=== PATIENT | male | born 1985 | race Caucasian/White ===

== ENCOUNTER 2019-07-01 19:20 | Observation (INO) | payer OTHER, SELFPAY ==
[2019-07-01] VITALS (20 sets, daily range): BP systolic 91–110; BP diastolic 60–72; PULSE 78–98; RESP 13–25; TEMP 37.3–37.8; O2SAT 96–100
--- NOTE | ~2019-07-01 | CT_ITS ---
EXAMINATION: CT BRAIN W/O DATE: 07/01/2019 21:19 INDICATION: Seizure. Headache. TECHNIQUE: Computed tomography (CT) of the head was performed without intravenous contrast. The dose- length product was 605.33 mGy-cm. The mA was adjusted according to patient size. Iterative reconstruc tion technique was employed. COMPARISON: No prior studies for comparison. FINDINGS: Normal brain parenchymal volume for age. Normal moraes-white differentiation. No acute intrac ranial hemorrhage, infarction, mass or mass effect. No ventriculomegaly or midline shift. Midline sagittal images demonstrate a normal corpus callosum, c raniovertebral junction and sella turcica. Basilar cisterns are patent. Paranasal sinuses and mastoids are pneumatized. No depressed skull fractures. IMPRESSION: 1. No acute intracranial abnormality. Reviewed, dictated and finalized at location A. EL LOCOMOTIVE ENGINEER
--- NOTE | ~2019-07-01 | CT_ITS ---
EXAMINATION: CT soft tissue neck chest w DATE: 07/01/2019 21:19 INDICATION: Seizure. Neck pain. Bruising. TECHNIQUE: Computed tomography (CT) of the neck and chest was performed with 75 mL Omnipaque-350 intr avenous contrast. The dose-length product was 652.85 mGy-cm. Automated exposure control and iterative reconstruction technique were employed. COMPARISON: None FINDINGS: No significant vascular abnormality. No cervical lymphadenopathy. Thyroid gland is unremark able. No paraspinal soft tissue abnormality. No significant airway narrowing. No acute abnormality of the thyroid or hyoid cartilage. The cervical spine is unremarkable. Lung parenchyma is normal. No pn eumothorax. No endobronchial lesions. Heart size normal. No thoracic lymphadenopathy. The upper abdom en is unremarkable. IMPRESSION: 1. No acute abnormality of the neck or chest. Reviewed, dictated and finalized at location A. DIE MAKER
--- NOTE | ~2019-07-01 | XR_ITS ---
EXAMINATION: XR chest 2V 07/01/2019 21:27 INDICATION: Seizure. Fall. Chest pain. PROCEDURE: 2 view chest COMPARISON: No prior studies for comparison. FINDINGS: The lungs are clear. The cardiomediastinal silhouette is within normal limits. There are no pleural effusions. There is no pneumothorax suspected. IMPRESSION: 1: NO ACUTE CARDIOPULMONARY DISEASE. Reviewed, dictated and finalized at location A. AGE MECHANIC
[2019-07-01 19:51] LABS: Glucose Point of Care 126 (65-105)
--- NOTE | 2019-07-01 20:21 | PC.NURSE ---
Patient's mother came to this nurse and stated patient was getting anxious. This nurse informed her that the patient explained he anxiousness when performing his assessment. This nurse informed patient's mother and patient that the doctor will be in as soon as he can, that there are several critical patient's in the ER at this time. Patient's mother states patient has history of chronic anxiety. This nurse informed EDP.
--- NOTE | 2019-07-01 20:46 | ED.SEIZURE ---
HPI - Seizure General Chief Complaint: Seizure Stated Complaint: seizure/head injury Time Seen by Provider: 07/01/19 20:01 Source: patient, family (mother) and RN notes reviewed Mode of arrival: EMS Limitations: no limitations History of Present Illness HPI Narrative: Pt is a 33 y/o male who presents to the ED, via EMS, with c/o a seizure which occurred prior to arrival. The pt arrives to the ED with a C-collar in place. The pt reports he was at home when he had the seizure. His mother reports she did not see the pt fall, but she heard him. The pt's eyes were fixed and dilated with his arms flexed. She states the pt's mouth was clenched around the iron delmy of the table. She reports the pt had hit the table on his way to the floor. The pt's mother reports the pt experienced LOC, with increased disorientation and confusion secondary to the fall. She states the pt was in seizure-like activity for about 5 minutes. The pt has lacerations to his upper lip and neck which have stopped bleeding. Pt also reports generalized myalgias, but denies rhinorrhea, a sore throat, a cough, SOB, difficulty swallowing, a headache, urinary frequency, or dysuria. The pt reports he has had one previous seizure which occurred 1 year ago. He states the only correlation between the two episodes was that he had lack of sleep and eating, with an increased depressive state. Pt denies seeing a neurologist for his seizures, and denies being on any medication for his seizures. He reports smoking marijuana increases his anxiety levels and he reports he has smoked earlier this afternoon. He denies drinking alcohol recently. Pt reports a PMHx of depression, anxiety, and insomnia. complaint: seizure Onset (ago): unknown (sometime prior to arrival to the ED) Description of Episode: loss of consciousness Duration of episode: 5 -: minutes(s) Witnessed: Yes - by Bystander (mother) Trauma: No Seizure History: Yes (one year ago) Place: home Possible Precipitating Event: lack of sleep and other (lack of eating; increased depressive state) Associated symptoms: other (generalized myalgias; lacerations to his upper lip and neck) Related Data Home Medications Medication Instructions Recorded Confirmed alprazolam [Xanax] 0.5 mg PO TID PRN 07/02/19 07/02/19 Allergies Allergy/AdvReac Type Severity Reaction Status Date / Time No Known Allergies Allergy Verified 07/01/19 19:36 Review of Systems Review of Systems: All systems reviewed & are unremarkable except as noted in HPI and below Constitutional: Constitutional: Reports body ache(s) (generalized myalgias) ENT: Denies nasal discharge (rhinorrhea), Denies sore throat and Denies other (difficulty swallowing) Respiratory: Respiratory: Denies cough and Denies dyspnea Genitourinary: Genitourinary: Denies dysuria and Denies urinary frequency Integumentary/Breasts: Skin/Breast: Reports other (lacerations to his upper lip and neck) Neurologic: Denies headache(s) and Reports seizure-like activity (resolved currently in the ED bed) PMFSH Past Medical History Medical History Anxiety Depression Insomnia Social History Social History (Updated 07/02/19 @ 10:19 by Mckinley Sheridan PA-C) Social History: Patient lives at home with his mother and grandmother. He designates his mother, Dionne Cardoso, as his surrogate MDM. He wishes to be a Full Code. He has a primary care but does not remember the name as he has not seen them yet. Smoking packs per day: 0.25 Smoking cigarettes per day: 5.0 Years smoked: 15 Smoking pack-years: 3.75 Smoking status: Current some day smoker Tobacco type: cigarettes Alcohol intake: never Substance use: current Substance use type: marijuana Last use: 07/01/19 Gender identity (if verbalized by the patient): Male Spiritual care concerns: No Agree to blood products: No Exam Narrative: Exam Narrative: GENERAL:
[2019-07-01 21:10] LABS: Basophils Absolute Auto 0.1 K/mm3 (0.0-0.1); Basophils Percent Auto 0.4 % (0.2-1.2); Eosinophils Absolute Auto 0.1 K/mm3 (0-0.3); Eosinophils Percent Auto 1.1 % (0-4.4); Hematocrit 40.7 % (42.0-52.0); Hemoglobin 13.7 g/dL (14.0-18.0); Immature Granulocyte Absolute 0.04 K/mm3 (0.00-0.031); Immature Granulocyte Percent A 0.4 % (0-0.5); Lymphocytes Absolute Auto 0.84 K/mm3 (0.9-3.2); Lymphocytes Percent Auto 7.4 % (18.3-44.2); Mean Corpuscular HGB Conc 33.7 g/dl (32-36); Mean Corpuscular Hemoglobin 31.1 pg (26-34); Mean Corpuscular Volume 92.3 fl (80-100); Mean Platelet Volume 10.5 fl (7.4-10.4); Monocytes Absolute Auto 0.6 K/mm3 (0.1-0.6); Monocytes Percent Auto 5.5 % (2.6-8.5); Neutrophils Absolute Auto 9.7 K/mm3 (1.3-6.7); Neutrophils Percent Auto 85.2 % (45.5-73.1); Platelet Count Result 221 k/mm3 (150-375); Red Blood Count 4.41 M/mm3 (4.6-6.20); Red Cell Distribution Width 12.2 % (11.5-14.5); White Blood Count 11.3 K/mm3 (4.5-10.0)
--- NOTE | 2019-07-01 21:15 | PC.NURSE ---
Patient in radiology at this time.
[2019-07-01 21:16] LABS: Blood Urea Nitrogen 15 mg/dL (8-26); Estimated Glomerular Filt Rate > 60
[2019-07-01 21:24] LABS: Alanine Aminotransferase 15 U/L (4-50); Albumin Level 4.4 g/dL (3.5-5.1); Alkaline Phosphatase 66 U/L (38-126); Aspartate Amino Transferase 26 U/L (17-59); Bilirubin,Total 0.4 mg/dL (0.2-1.3); Blood Urea Nitrogen 15 mg/dL (9-20); Calcium 9.4 mg/dL (8.4-10.2); Carbon Dioxide 26 mmol/L (22-30); Chloride 103 mmol/L (98-107); Estimated Glomerular Filt Rate > 60; Glucose 114 mg/dL (75-110); Potassium 3.5 mmol/L (3.4-5.0); Sodium 137 mmol/L (137-145)
[2019-07-01 21:43] LABS: Ethanol < 10 mg/dL (<10)
[2019-07-01 22:42] LABS: Add Urine Microscopic? YES; Appearance Urine Clear (Clear); Bilirubin Urine Negative (Negative); Blood Urine Negative (Negative); Color Urine Yellow (Yellow); Glucose Urine UA Negative (Negative); Ketones Urine Negative (Negative); Leukocyte Esterase Ur Negative LEU/UL (Negative); Mucus Urine Rare /lpf; Nitrate Urine Negative (Negative); Protein Urine 1+ mg/dL (Negative); Specific Grav Ur 1.035 (1.001-1.035); Urobilinogen Urine Negative mg/dL (<2.0); WBC Urine 0-3 /hpf
[2019-07-01 22:58] LABS: Amphetamine Screen Urine Negative (Negative); Barbiturate Screen Urine Negative (Negative); Benzodiazepines Screen Urine Positive (Negative); Cannabinoid Screen Urine Positive (Negative); Cocaine Screen Urine Negative (Negative); Methadone Screen Urine Negative (Negative); Opiate Screen Urine Negative (Negative); Phencyclidine Screen Urine Negative (Negative)
[2019-07-01] MEDS: levETIRAcetam 1000MG/NACL100ML 1,000 MG/100 ML BAG 400 MG IVPB (23:21)
[2019-07-02] VITALS (10 sets, daily range): BP systolic 95–114; BP diastolic 46–76; PULSE 57–89; RESP 14–23; TEMP 36.6–37.2; O2SAT 98–100; BMI 17.9
[2019-07-02] MEDS: levETIRAcetam 500 MG TABLET PO (08:29)
[2019-07-02] MEDS: MORPHINE SULFATE 4 MG/ML INJ IV PUSH (08:31)
--- NOTE | 2019-07-02 09:30 | NEURO_ITS ---
TEST: ELECTROENCEPHALOGRAM DIAGNOSIS: SEIZURE PATIENT NUMBER: [id number] EEG NUMBER: [id number] RECORDING DATE: 07/02/19 CLINICAL HISTORY: Patient reports he was found on the floor with dilated eyes and unresponsive. States he was confused prior to the episode. CONDITION OF RECORDING: Awake and drowsy EEG DESCRIPTION: Basic resting occipital frequency consists of moderate amount of well organized low to medium voltage 8-10hz alpha mixed with low voltage 15- 18hz beta. During drowsiness low voltage beta activity is seen diffusely mixed with waxing and waning posterior alpha rhythms and multiple muscle and movement artifacts. Bilateral symmetrical sleep activity is seen during sleep. Hyperventilation and photic stimulation were not done. Nonparoxysmal. Nonfocal. Nonlateralizing . IMPRESSION: No significant abnormalities noted. MTDD
--- NOTE | 2019-07-02 09:57 | PM.IMHP ---
H&P: HPI History of Present Illness Chief complaint: seizure Narrative: Lenin Contreras II is a 33 year old male with history of insomnia, anxiety/depression, and occasional marijuana use who presented to the ER on evening of 07/01 after having reports of a seizure-like activity earlier in the day. Patient states that he does not remember much about the episode itself, as he lost consciousness and did not start to come to until EMS arrived and on the ride to the hospital. He states that his mom reportedly found him on the bedroom floor grasping the metal iron rods of his desk with both hands and arms flexed and him biting the delmy itself. She heard him fall to the ground and came running to the room to find him this way (the mother is not in the room at the time, but will attempt to get more information later in stay); per EMR reports mother stated that his eyes were fixed and dilated, with reports of seizure like activity for about 5 minutes. He states he has oral lesions/lacerations from biting and does not recall urinating or defecating on himself. Today he feels close to his baseline, although he notes his whole body is sore with muscle and joint aches. He recalls having a similar episode roughly 2 years ago. Both episode he attributes to not eating or sleeping very much in the day(s) leading up to the episodes. He remembers feeling confused prior to this episode. He had smoked marijuana earlier in the day, but notes that he has smoked this batch of marijuana for several weeks now without any issues. He denies any other recent illicit drug use, changes in medications; he occasionally takes Xanax for his anxiety but his last dose was roughly 2 weeks ago. He denies any family history of seizures. He notes he has an injury to his neck when he sustained the fall. He denies seeing a neurologist or taking medications from his prior seizure-like activity. Patient denies f/c/ns, headaches, dizziness, lightheadedness, changes in vision/hearing, cp/palpitations, sob/cough, recent cold/illness, dysphagia, abd pain, n/v/d/c, melena, brbpr, dysuria, hematuria, cloudy urine, calf pain/swelling, s/sx of stroke. Review of Systems Review of Systems: All systems reviewed & are unremarkable except as noted in HPI and below PMFSH Past Medical History Medical History Anxiety Depression Insomnia Social History Social History (Updated 07/02/19 @ 10:19 by Mckinley Sheridan PA-C) Social History: Patient lives at home with his mother and grandmother. He designates his mother, Dionne Cardoso, as his surrogate MDM. He wishes to be a Full Code. He has a primary care but does not remember the name as he has not seen them yet. Smoking packs per day: 0.25 Smoking cigarettes per day: 5.0 Years smoked: 15 Smoking pack-years: 3.75 Smoking status: Current some day smoker Tobacco type: cigarettes Alcohol intake: never Substance use: current Substance use type: marijuana Last use: 07/01/19 Gender identity (if verbalized by the patient): Male Spiritual care concerns: No Agree to blood products: No Meds Home Medications and Allergies Home Medications Medication Instructions Recorded Confirmed Type alprazolam [Xanax] 0.5 mg PO TID PRN 07/02/19 07/02/19 History Allergies Allergy/AdvReac Type Severity Reaction Status Date / Time No Known Allergies Allergy Verified 07/01/19 19:36 Vital Signs Vital Signs - 24 hr 07/01/19 19:24 07/01/19 19:29 07/01/19 20:09 Temperature 100.1 F H Pulse Rate 95 Respiratory Rate 16 Blood Pressure 109/62 Pulse Oximetry 96 96 98 07/01/19 20:15 07/01/19 20:16 07/01/19 20:30 Temperature Pulse Rate Respiratory Rate Blood Pressure 91/60 L 102/60 Pulse Oximetry 100 99 100 07/01/19 20:31 07/01/19 20:47 07/01/19 21:31 Temperature Pulse Rate 90 Respiratory Rate 20 Blood Pressure Pulse Oximet
[2019-07-02 12:14] LABS: Basophils Absolute Auto 0.1 K/mm3 (0.0-0.1); Basophils Percent Auto 0.6 % (0.2-1.2); Eosinophils Absolute Auto 0.4 K/mm3 (0-0.3); Eosinophils Percent Auto 4.4 % (0-4.4); Hematocrit 37.7 % (42.0-52.0); Hemoglobin 12.8 g/dL (14.0-18.0); Immature Granulocyte Absolute 0.01 K/mm3 (0.00-0.031); Immature Granulocyte Percent A 0.1 % (0-0.5); Lymphocytes Absolute Auto 2.35 K/mm3 (0.9-3.2); Lymphocytes Percent Auto 27.2 % (18.3-44.2); Mean Corpuscular Hemoglobin 31.5 pg (26-34); Mean Corpuscular Volume 92.9 fl (80-100); Monocytes Absolute Auto 0.9 K/mm3 (0.1-0.6); Monocytes Percent Auto 10.2 % (2.6-8.5); Neutrophils Percent Auto 57.5 % (45.5-73.1); Platelet Count Result 207 k/mm3 (150-375); Red Blood Count 4.06 M/mm3 (4.6-6.20); Red Cell Distribution Width 12.6 % (11.5-14.5); White Blood Count 8.6 K/mm3 (4.5-10.0)
[2019-07-02 12:22] LABS: Blood Urea Nitrogen 14 mg/dL (9-20); Calcium 9.1 mg/dL (8.4-10.2); Carbon Dioxide 23 mmol/L (22-30); Chloride 104 mmol/L (98-107); Estimated CRCL calculation 69 ml/min; Estimated Glomerular Filt Rate > 60; Glucose 114 mg/dL (75-110); Potassium 3.4 mmol/L (3.4-5.0); Sodium 138 mmol/L (137-145)
--- NOTE | 2019-07-02 13:03 | PCDIET ---
Nutrition MST screen Complete: Pt current nutrition is regular. Nutrition recommendation: agree Last recorded weight is 56.8 kg. Bowel Motility: Labs Reviewed:Hgb/Hct 13.7/40.7 Glucose 114 Meds Noted:Caroline Additional Notes: Seeing pt today due to poor appetite and low body wt. Pt states he grew up with very limited food resources and has a low appetite. He will eat only once per day but does have access to food at this point. Anxiety, insomnia started at age 16. He would like to gain weight. Unsure of vitamin D status and does experience lactose intolerance and IBS symptoms at items. Nutrient deficiencies expected. Glucose was elevated at 114. Pt describes light headiness and irritability when very hungry. Recommend A1c check. If GI issues and poor wt gain continue also consider celiac testing. Discussed retraining appetite, starting slowly to introduce three feeding times per day. Recommend perfect bar or carnation instant breakfast to get some kcals/protein with vitamins and minerals. Recommended Epsom salt in bath to get magnesium to aid in sleep and anxiety reduction. Recommend regular lab work with PCP and checking vitamin D due to mood disorders. Pt plans to d/c home today. We will follow every three days to check for adequate intake if pt remains inpatient.
[2019-07-02] MEDS: lamoTRIgine 25 MG TABLET 50 MG PO (13:42)
--- NOTE | 2019-07-02 16:10 | PM.DS ---
DS: Diagnosis Admitting Diagnosis Admitting Diagnosis: Unspecified convulsions Discharge Diagnosis (1) Witnessed seizure-like activity: Code(s): R56.9 - Unspecified convulsions Status: Acute Assessment and Plan: Possible true generalized seizure witnessed by mother. Possibly due to hypoglycemia (patient not eating as much) vs insomnia vs illicit drug use vs less likely infection or intracranial mass (Ct of Head unremarkable). DDx includes syncope vs psychogenic vs anxiety attack vs withdrawal seizure from alcohol vs other. Dr. Flores has been consulted and appreciate input. Okay for discharge today from Neurology standpoint Patient to have EEG today, pending results No seizure-like activity since yesterday. Started on Keppra from ED, however, per Dr. Flores recommendations, will start Lamictal 50 mg daily today. Follow up with Dr. Flores in 6 weeks. (2) Anxiety: Code(s): F41.9 - Anxiety disorder, unspecified Status: Acute Assessment and Plan: No acute issues at this time. Will resume Xanax at discharge. Instructed patient to follow up with [facility] for further management. He will need follow up with PCP and psychiatrist (3) Depression: Code(s): F32.9 - Major depressive disorder, single episode, unspecified Status: Acute Assessment and Plan: No acute issues. Please see above a/p (4) Insomnia: Code(s): G47.00 - Insomnia, unspecified Status: Acute Assessment and Plan: Patient will need follow up with PCP Will need good sleep hygiene Possible precipitating factor for possible seizure - lack of sleep? DS: Summary Hospital Course Reason for hospitalization: Seizure-like activity Hospital Course: Patient is a 33 year old male with history of insomnia, anxiety/depression, and occasional marijuana use who presented to the ER on evening of 07/01 after having reports of a seizure-like activity earlier in the day. Patient allegedly was heard dropping to the floor of his room by his mother that day. When the mother ran up to the room, he was found with his arms flexed and his mouth biting the delmy-iron leg of his desk, eyes/pupils fixed, and unresponsive. Patient believed he was like this for 5 minutes, but when questioned by mother, she stated at least ten minutes. He regained consciousness right when the EMS arrived and was in a confused state there after. He did not urinate/defecate on himself; he had some mouth trauma. He had a similar episode roughly 2 years prior and stated he was not sleeping well or eating as much at that time, either. He was started on Keppra while in the ED. Please see H&P for further details. Presenting VS: BP 109/62, HR 95, RR 16, temp 100.1, sat 96% RA Presenting Pertinent labs: WBC 11.3, H&H 13.7/40.7, MCV 92.3, POC glucose 126. Tox screen positive for benzodiazepines and cannabinoids. CBC, CMP, UA otherwise unremarkable Micro: none Imagin/[address] IMPRESSION: 1. No acute intracranial abnormality. 07/01 Neck/chest CT IMPRESSION: 1. No acute abnormality of the neck or chest. 07/01 CXR IMPRESSION: 1: NO ACUTE CARDIOPULMONARY DISEASE. ECG: none Patient was admitted to the hospitalist service for further evaluation; Dr. Flores (Neurology) was consulted for further input. Patient was nearly back to baseline on the day after arrival. His imaging and labs were unremarkable for etiology of possible seizure. Dr. Flores recommended switching patient to Lamictal 50 mg due to his anxiety and to follow up with a psychiatrist for further management of his anxiety; it was felt that this could have also been anxiety attack given patient's history. As a precaution, however, it was felt best to continue antiepileptic medication for prevention of possibly future seizures. Patient was hemodyn
--- NOTE | 2019-07-02 18:33 | CONS_ITS ---
DATE OF CONSULTATION: 07/01/2019 33 years old right-handed male has been admitted to [facility] through the emergency room with the complaints of 1. Anxiety with depression and insomnia. 2. Occasional marijuana use. Reportedly he presented to the ER in the evening of 07/01 after having a so-called seizure-like activity earlier in the day. Though he was unable to recall exactly the whole episode, he became unconscious and did not regain conscious ness until EMS arrived at the scene. His mother reportedly found him on the bedroom floor grasping the metalof his desk, both hands and arms flexed, biting the roll itself. She heard him fall to the ground and came running to the room to find him this way. As per the EMR report, mother stated that his eyes were fixed and dilated. He was in the seizure-like activity for about 5 minutes. . By the time he was seen by the hospital he was at baseline. He was complaining of some aches and pains in the muscles. Both episodes were attributed by him not to eating or sleeping very well. He remembers feeling confused prior to a particular episode. He had smoked marijuana earlier in the day, but noticed that when he smoked marijuana for 7 weeks now without any issues. He did deny taking any illicit drugs. He had no injury on his neck He does have ongoing history of anxiety with depression and insomnia for long time though he has not been under the care of any psychiatrist. He smokes 1/4 pack per day and has been smoking for 7 years and is current some day smoker, smokes marijuana also. He is taking alprazolam 0.5 mg t.i.d. p.r.n. PHYSICAL EXAMINATION: VITAL SIGNS: Evaluation up until now revealed him to have normal vital signs except temp of 100.1, pulse ox 100. GENERAL: Examination revealed him today to be awake, alert, cooperative, in no obvious acute distress. HEENT: Head normocephalic with no cranial bruit. Ears, nose, throat exam normal. NECK: Supple with no cervical bruit. No thyromegaly or lymphadenopathy. HEART: Regular. LUNGS: Clear. ABDOMEN: Soft. NEUROLOGIC: Normal mental status, normal speech. Pupils round, regular. Mo of vision full. Extraocular movements full. Face symmetrical. Tongue midline. Motor examination revealed normal strength and tone in upper and lower extremities with no drift with no increased tone. Reflexes symmetrical. Plantars downgoing. No evidence of cerebellar deficit. LABORATORY DATA: Evaluation up until now includes CBC, which is normal, so is the basic metabolic panel. Hepatic enzymes are also normal. In addition, the UA is normal. IMAGING: CT scan revealed no evidence of bleed. Chest x-ray negative and EEG read by myself is completely normal and it was informed to him as well as to his mother. At this stage, they were advised that most likely we are dealing with recurrent anxiety attacks, but at the same time because of this particular episode of possible seizure, we are going to start him on the medication. Though he was given Keppra 500 mg twice a day from the ER, I will stop that, put him on Lamictal 50 mg daily that might be beneficial in the long for psych illness as well. He can be discharged. He can return to the office with a followup for the ongoing seizure. In the meantime, he was instructed to [facility]_ for the treatment of the anxiety. TRACEY KIRK M.D. RISK INTERN RISK INTERN D Marcell MT: Yeimy HECTOR
== END 2019-07-02 16:45 | disposition home or self-care (01) ==
LOC: ANHED 23:35 → ANH3MED 23:40
PROVIDERS: Physician Assistant; Admitting Provider Internal Medicine; Emergency Provider Emergency Medicine; Visit Provider Internal Medicine
DX: R56.9 Unspecified convulsions (principal); F41.8 Other specified anxiety disorders; G47.00 Insomnia, unspecified; F12.90 Cannabis use, unspecified, uncomplicated
CPT/HCPCS: 36415; 70450; 70491; 71046; 71260; 80048; 80053; 80307; 81001; 82948; 85025; 87804; 95816; 96374; 99285; A9270; G0378; G0379; J1953; J2270; Q9967

== ENCOUNTER 2019-12-19 05:44 | Emergency (ER) | payer OTHER, SELFPAY ==
[2019-12-19 05:47] VITALS: BP 119/83; PULSE 115; RESP 22; TEMP 37.3; O2SAT 100
--- NOTE | 2019-12-19 06:12 | ED.GENADULT ---
HPI - General Adult General Chief complaint: Unspecified Stated complaint: coughing up blood Time Seen by Provider: 12/19/19 05:49 History of Present Illness HPI narrative: Patient is a 34-year-old male who presents ER with blood-streaked sputum. Patient reports he was diagnosed with pneumonia on 01/02/2020. He took a course of albuterol, azithromycin, and prednisone. He reports he has been feeling great. Occasionally will have episodes of frequent coughing. He had one such episode today where he coughed up mucus that was streaked with blood. He is on any blood thinners. She reports he was having forceful coughing right before this. Reports mild runny nose but no sore throat. No fevers or chills or sweats or body aches. He was not COVID swabbed. Related Data Home Medications Medication Instructions Recorded Confirmed alprazolam [Xanax] 0.5 mg PO TID PRN 07/02/19 07/02/19 Allergies Allergy/AdvReac Type Severity Reaction Status Date / Time No Known Allergies Allergy Verified 07/01/19 19:36 Review of Systems Constitutional: Constitutional: Denies chills, Denies fever(s) and Denies weakness Cardiovascular: Cardiovascular: Denies chest pain and Denies rapid heart rate Respiratory: Respiratory: Reports chest congestion, Reports cough, Denies dyspnea and Denies wheezing PMFSH Past Medical History Medical History (Updated 12/19/19 @ 06:17 by Dann Neves MD) Anxiety Depression Insomnia Surgical History Surgical History (Updated 12/19/19 @ 06:14 by Dann Neves MD) No history of previous surgery Social History Social History (Updated 07/02/19 @ 10:19 by Mckinley Sheridan PA-C) Social History: Patient lives at home with his mother and grandmother. He designates his mother, Dionne Cardoso, as his surrogate MDM. He wishes to be a Full Code. He has a primary care but does not remember the name as he has not seen them yet. Smoking packs per day: 0.25 Smoking cigarettes per day: 5.0 Years smoked: 15 Smoking pack-years: 3.75 Smoking status: Current some day smoker Tobacco type: cigarettes Alcohol intake: never Substance use: current Substance use type: marijuana Last use: 07/01/19 Gender identity (if verbalized by the patient): Male Spiritual care concerns: No Agree to blood products: No Exam Narrative: Exam Narrative: GENERAL: Well-appearing, well-nourished, and in no acute distress. HEAD: Normocephalic, atraumatic. CHEST: Clear to auscultation. No respiratory distress. HEART: Regular rate and rhythm. Normal peripheral pulses. NEURO: Alert and oriented x3. PSYCH: Normal mood and affect. Course Course Emergency Course: Patient will receive Tessalon Perles and Mucinex DM. Vital Signs Vital signs: Vital Signs Temperature 99.1 F 12/19/19 05:47 Pulse Rate 115 H 12/19/19 05:47 Respiratory Rate 22 H 12/19/19 05:47 Blood Pressure 119/83 12/19/19 05:47 Pulse Oximetry 100 12/19/19 05:47 Temperature 99.1 F 12/19/19 05:47 Pulse Rate 115 H 12/19/19 05:47 Respiratory Rate 22 H 12/19/19 05:47 Blood Pressure 119/83 12/19/19 05:47 Pulse Oximetry 100 12/19/19 05:47 Medical Decision Making Vital Signs Vital Signs: Vital Signs Temperature 99.1 F 12/19/19 05:47 Pulse Rate 115 H 12/19/19 05:47 Respiratory Rate 22 H 12/19/19 05:47 Blood Pressure 119/83 12/19/19 05:47 Pulse Oximetry 100 12/19/19 05:47 Temperature 99.1 F 12/19/19 05:47 Pulse Rate 115 H 12/19/19 05:47 Respiratory Rate 22 H 12/19/19 05:47 Blood Pressure 119/83 12/19/19 05:47 Pulse Oximetry 100 12/19/19 05:47 Discharge Plan Discharge Clinical Impression: Cough Patient Disposition: Home, Self-Care Condition: Stable Instructions: Chronic Cough (ED) Additional Instructions: You have persistent cough from your pneumonia. This will take time to go away. In the meantime use Tessalon Perles to help suppress her cough a
[2019-12-19 06:15] VITALS: O2SAT 100
[2019-12-19 06:23] VITALS: BP 124/88; PULSE 109; RESP 22; TEMP 36.3; O2SAT 98
== END 2019-12-19 06:29 | disposition home or self-care (01) ==
PROVIDERS: Emergency Provider Emergency Medicine
DX: R04.2 Hemoptysis (principal); F41.9 Anxiety disorder, unspecified; F32.9 Major depressive disorder, single episode, unspecified; F17.210 Nicotine dependence, cigarettes, uncomplicated
CPT/HCPCS: 99283

== ENCOUNTER 2020-03-01 05:13 | Emergency (ER) | payer OTHER, SELFPAY ==
[2020-03-01 05:16] VITALS: BP 138/80; PULSE 117; RESP 18; TEMP 36.3; O2SAT 100
--- NOTE | 2020-03-01 05:38 | ED.EAR ---
HPI - Ear Problem General Chief complaint: Ear Stated complaint: bug in right ear Time Seen by Provider: 03/01/20 05:24 Source: RN notes reviewed History of Present Illness HPI Narrative: Patient presents emergency department from home for bug in his ear. Patient states approximately 30 minutes prior to arrival he felt something fly into his right ear. Since that time is been able to feel it fluttering inside of his ear. Denies any other symptoms denies any fevers or chills or hearing loss Related Data Home Medications Medication Instructions Recorded Confirmed alprazolam [Xanax] 0.5 mg PO TID PRN 07/02/19 07/02/19 Allergies Allergy/AdvReac Type Severity Reaction Status Date / Time No Known Allergies Allergy Verified 03/01/20 05:14 Review of Systems Review of Systems: Narrative: Gen.: Denies fevers or chills HEENT: See HPI Neuro: Denies numbness, tingling, weakness Skin: Denies rash Endo: Denies DM PMFSH Past Medical History Medical History Anxiety Depression Insomnia Surgical History Surgical History (Updated 12/19/19 @ 06:14 by Dann Neves MD) No history of previous surgery Social History Social History Social History: Patient lives at home with his mother and grandmother. He designates his mother, Dionne Cardoso, as his surrogate MDM. He wishes to be a Full Code. He has a primary care but does not remember the name as he has not seen them yet. Smoking packs per day: 0.25 Smoking cigarettes per day: 5.0 Years smoked: 15 Smoking pack-years: 3.75 Smoking status: Current some day smoker Tobacco type: cigarettes Alcohol intake: never Substance use: current Substance use type: marijuana Last use: 07/01/19 Gender identity (if verbalized by the patient): Male Spiritual care concerns: No Agree to blood products: No Exam Narrative: Exam Narrative: APPEARANCE: No acute distress, nontoxic, resting in bed Eyes: EOMI HEENT: Normocephalic, atraumatic, left TM is normal appearance, the right external ear canal has a blood present in the ear canal there is mild abrasion of the canal TM is intact RESPIRATORY: No respiratory distress MUSCULOSKELETAl: Moves all extremities NEURO: Awake and alert. Following commands, speech normal, no focal deficits SKIN:: Warm, dry. Normal Color no rash or lesions Course Course Emergency Course: Discussed with patient results of workup and diagnosis. Discussed need for follow-up with primary care, proper use of medication, and reasons to return to the emergency department. Patient understands and agrees to current treatment plan Vital Signs Vital signs: Vital Signs Temperature 97.3 F L 03/01/20 05:16 Pulse Rate 117 H 03/01/20 05:16 Respiratory Rate 18 03/01/20 05:16 Blood Pressure 138/80 03/01/20 05:16 Pulse Oximetry 100 03/01/20 05:16 Temperature 97.3 F L 03/01/20 05:16 Pulse Rate 117 H 03/01/20 05:16 Respiratory Rate 18 03/01/20 05:16 Blood Pressure 138/80 03/01/20 05:16 Pulse Oximetry 100 03/01/20 05:16 Procedures FB Removal Ear Foreign Body #1: Location: ear canal (R) Foreign Body Suspected: insect TM intact pre-procedure: yes If Insect Suspected: ear canal instilled with Lidocaine Foreign Body Removed: yes Foreign Body Removal Technique: instrumentation (The ear was initially irrigated until the bug was removed from the ear canal and then removed with alligator forceps. A moth was removed) Tympanic Membrane Intact Post Procedure: Yes Patient Tolerated Procedure: well Complications: none Medical Decision Making Vital Signs Vital Signs: Vital Signs Temperature 97.3 F L 03/01/20 05:16 Pulse Rate 117 H 03/01/20 05:16 Respiratory Rate 18 03/01/20 05:16 Blood Pressure 138/80 03/01/20 05:16 Pulse Oximetry 100 0
[2020-03-01] MEDS: LIDOCAINE HCL 2% GEL UROJET 10 ML PKG (05:39)
== END 2020-03-01 05:50 | disposition home or self-care (01) ==
LOC: ANHED 05:45
PROVIDERS: Emergency Provider Emergency Medicine
DX: T16.1XXA Foreign body in right ear, initial encounter (principal); F41.9 Anxiety disorder, unspecified; F32.9 Major depressive disorder, single episode, unspecified; F17.210 Nicotine dependence, cigarettes, uncomplicated
CPT/HCPCS: 69200; 99282

== ENCOUNTER 2020-08-08 14:05 | Emergency (ER) | payer OTHER, SELFPAY ==
[2020-08-08 14:07] VITALS: BP 119/77; PULSE 93; RESP 18; TEMP 36.8; O2SAT 100
[2020-08-08 14:13] VITALS: PULSE 96; O2SAT 99
--- NOTE | 2020-08-08 14:23 | ECG_ITS ---
Measurements Intervals [place] Rate: 78 P: 74 TN: 155 QRS: 80 QRSD: 106 T: 61 QT: 386 QTc: 440 Interpretive Statements SINUS RHYTHM NORMAL ECG Electronically Signed On 08-08-2020 15:11:38 APPLICATIONS CONSULTANT by Sean Clark D.O.
--- NOTE | 2020-08-08 14:23 | ED.SEIZURE ---
HPI - Seizure General Chief Complaint: Seizure Stated Complaint: seizure Time Seen by Provider: 08/08/20 14:12 Source: patient and other (friend) Mode of arrival: ambulatory Limitations: no limitations History of Present Illness HPI Narrative: This is 34 year old male with history of anxiety who presents for evaluation of a seizure. PAtient states he has multiple seizures in the past. He does not take seizure medication. He is followed by Dr. Flores for his seizure. Today he was riding in a car with his friend when she witness patient have what appeared to be a seizure. She describes that patient became stiff and shaking. She reports he was pale and lips turned blue. This lasted for 3 minutes and she states it took him 10 minutes to return to normal. Patient is able to answer all questions now. He states he has insomnia and he has difficulty sleeping most nights. He did not sleep last night. He reports issues with anxiety and thoughts racing at night. He also reports he drinks alcohol every other night. HE has not drank alcohol in 2 days. He was started on Lamictal last year by his neurologist. He states once his dose was increased to 100 mg he started having side effects so he stopped taking the medication. He has not taken this medication in months. He denies regularly taking benzos. He last took Xanax 4 months ago. He denies headache or focal weakness. He has no complaints. Seizure History: Yes (one year ago) Related Data Home Medications Medication Instructions Recorded Confirmed alprazolam [Xanax] 0.5 mg PO TID PRN 07/02/19 07/02/19 Allergies Allergy/AdvReac Type Severity Reaction Status Date / Time No Known Allergies Allergy Verified 08/08/20 14:09 Review of Systems Review of Systems: All systems reviewed & are unremarkable except as noted in HPI and below Psychiatric: Psychiatric: Reports anxiety PMFSH Past Medical History Medical History (Updated 08/08/20 @ 17:04 by Narcisa Mallory MD) Anxiety Depression Insomnia Surgical History Surgical History (Updated 12/19/19 @ 06:14 by Dann Neves MD) No history of previous surgery Social History Social History (Updated 08/08/20 @ 14:24 by Narcisa Mallory MD) Social History: Patient lives at home with his mother and grandmother. He designates his mother, Dionne Cardoso, as his surrogate MDM. He wishes to be a Full Code. He has a primary care but does not remember the name as he has not seen them yet. Smoking packs per day: 0.25 Smoking cigarettes per day: 5.0 Years smoked: 15 Smoking pack-years: 3.75 Smoking status: Current some day smoker Tobacco type: cigarettes Alcohol intake: current Substance use: current Substance use type: marijuana Last use: 07/01/19 Gender identity (if verbalized by the patient): Male Spiritual care concerns: No Agree to blood products: No Exam Const: General: no acute distress and alert Nutritional Appearance: thin Orientation/consciousness: patient oriented x3 Eyes: EOM: EOMs intact bilaterally Chest: Chest palpation & inspection: normal inspection of the chest Resp: Effort & Inspection: normal respiratory effort and no retractions Auscultation: clear to auscultation bilaterally Cardio: Rate: regular rate Rhythm: regular rhythm GI: GI Palp: Yes Soft to palpation, No Tenderness to palpation present (GI) and No Guarding due to palpation present (GI) Auscultation: normal bowel sounds Skin: General skin exam: normal color Rashes: no rashes Neuro: General: patient oriented x3, moves all extremities, no meningeal signs, no focal motor deficits and CN's II-XI intact bilaterally Cranial nerves: Yes Nystagmus not present Speech: normal speech Extrem: General: normal to inspection Psych: Mental Status: mental status grossly normal Affect: normal affect Course Reevaluation(s) Reevaluation #1: I Discussed my discussion with neurology. He is agreeable
[2020-08-08 14:35] LABS: Basophils Absolute Auto 0.1 K/mm3 (0.0-0.1); Basophils Percent Auto 0.8 % (0.2-1.2); Eosinophils Absolute Auto 0.4 K/mm3 (0-0.3); Eosinophils Percent Auto 3.8 % (0-4.4); Hematocrit 45.5 % (42.0-52.0); Hemoglobin 15.5 g/dL (14.0-18.0); Immature Granulocyte Absolute 0.03 K/mm3 (0.00-0.031); Immature Granulocyte Percent A 0.3 % (0-0.5); Lymphocytes Absolute Auto 1.61 K/mm3 (0.9-3.2); Lymphocytes Percent Auto 15.2 % (18.3-44.2); Mean Corpuscular HGB Conc 34.1 g/dl (32-36); Mean Corpuscular Hemoglobin 33.8 pg (26-34); Mean Corpuscular Volume 99.1 fl (80-100); Mean Platelet Volume 10.2 fl (7.4-10.4); Monocytes Absolute Auto 1.2 K/mm3 (0.1-0.6); Monocytes Percent Auto 10.9 % (2.6-8.5); Neutrophils Absolute Auto 7.3 K/mm3 (1.3-6.7); Platelet Count Result 276 k/mm3 (150-375); Red Blood Count 4.59 M/mm3 (4.6-6.20); Red Cell Distribution Width 12.1 % (11.5-14.5); White Blood Count 10.6 K/mm3 (4.5-10.0)
[2020-08-08] MEDS: LACTATED RINGERS 1,000 ML 999 ML IV CONT (14:38)
[2020-08-08 14:51] LABS: Alanine Aminotransferase 21 U/L (4-50); Albumin Level 4.7 g/dL (3.5-5.1); Alkaline Phosphatase 82 U/L (38-126); Anion Gap 5 mmol/L (8-16); Aspartate Amino Transferase 43 U/L (17-59); Bilirubin,Total 0.5 mg/dL (0.2-1.3); Blood Urea Nitrogen 18 mg/dL (9-20); Calcium 9.4 mg/dL (8.4-10.2); Carbon Dioxide 33 mmol/L (22-30); Chloride 103 mmol/L (98-107); Estimated CRCL calculation 8 ml/min; Estimated Glomerular Filt Rate > 60; Glucose 66 mg/dL (75-110); Potassium 3.8 mmol/L (3.4-5.0); Sodium 141 mmol/L (137-145)
[2020-08-08 15:24] LABS: Add Urine Microscopic? YES; Amorphous Sediment Urine Moderate; Appearance Urine Cloudy (Clear); Bacteria Urine Trace /hpf; Bilirubin Urine Negative (Negative); Blood Urine Negative (Negative); Color Urine Yellow (Yellow); Glucose Urine UA Negative (Negative); Ketones Urine Negative (Negative); Leukocyte Esterase Ur Negative LEU/UL (Negative); Mucus Urine Rare /lpf; Nitrate Urine Negative (Negative); Protein Urine Negative (Negative); RBC Urine 0-2 /hpf (0-2); Specific Grav Ur 1.014 (1.001-1.035); Squamous Epithelial Cell Urine Rare /hpf (Few); Urobilinogen Urine Negative mg/dL (<2.0); WBC Urine 0-3 /hpf
[2020-08-08 15:32] LABS: Barbiturate Screen Urine Negative (Negative); Benzodiazepines Screen Urine Negative (Negative)
[2020-08-08 15:37] LABS: Cannabinoid Screen Urine Positive (Negative); Cocaine Screen Urine Negative (Negative); Methadone Screen Urine Negative (Negative); Opiate Screen Urine Negative (Negative); Phencyclidine Screen Urine Negative (Negative)
[2020-08-08 16:00] VITALS: BP 133/90; PULSE 96; RESP 20; O2SAT 99
[2020-08-08 16:38] LABS: Amphetamine Screen Urine Positive (Negative)
[2020-08-08 17:06] VITALS: BP 107/91; PULSE 81; RESP 20; O2SAT 100
[2020-08-08 17:20] VITALS: BP 107/91; PULSE 77; RESP 20; O2SAT 100
== END 2020-08-08 17:24 | disposition home or self-care (01) ==
PROVIDERS: Emergency Provider General Practice; PCP Emergency Medicine
DX: F41.9 Anxiety disorder, unspecified (principal); R56.9 Unspecified convulsions; F32.9 Major depressive disorder, single episode, unspecified; F17.210 Nicotine dependence, cigarettes, uncomplicated
CPT/HCPCS: 36415; 80053; 80307; 81001; 85025; 93005; 96360; 99283; J7120

== ENCOUNTER 2020-09-14 01:56 | Emergency (ER) | payer OTHER, SELFPAY ==
[2020-09-14] VITALS (18 sets, daily range): BP systolic 116–149; BP diastolic 78–109; PULSE 104–133; RESP 14–36; TEMP 36.6; O2SAT 99–100
--- NOTE | 2020-09-14 02:23 | ED.OVERDOSE ---
HPI - Overdose General Chief Complaint: Overdose Stated Complaint: OD Source: RN notes reviewed History of Present Illness HPI Narrative: Patient presents to emergency department from home via EMS for an overdose. EMS was called as the patient was unresponsive. The patient states he snorted a medication this evening is been unsure what it was he states that the last thing he remembers. The patient is given 8 of Narcan intranasally and became ANO x3. The patient is currently awake and alert with no deficits denies any complaints at this time. Denies any other drug use Related Data Home Medications Medication Instructions Recorded Confirmed alprazolam [Xanax] 0.5 mg PO TID PRN 07/02/19 07/02/19 Allergies Allergy/AdvReac Type Severity Reaction Status Date / Time No Known Allergies Allergy Verified 08/08/20 14:09 Review of Systems Review of Systems: Narrative: Gen.: Denies fevers or chills Eyes: Denies eye pain or visual change ENT: Denies congestion Respiratory: Denies shortness of breath or cough CV: Denies chest pain or palpitations GI: Denies abdominal pain nausea, emesis or diarrhea Musculoskeletal: Denies back pain or muscle pain Neuro: See HPI Skin: Denies rash Except as documented, all other systems reviewed and negative [facility] Past Medical History Medical History (Updated 09/14/20 @ 05:53 by Eulalio Marquez DO) Anxiety Depression Insomnia Surgical History Surgical History (Updated 12/19/19 @ 06:14 by Dann Neves MD) No history of previous surgery Social History Social History Social History: Patient lives at home with his mother and grandmother. He designates his mother, Dionne Cardoso, as his surrogate MDM. He wishes to be a Full Code. He has a primary care but does not remember the name as he has not seen them yet. Smoking packs per day: 0.25 Smoking cigarettes per day: 5.0 Years smoked: 15 Smoking pack-years: 3.75 Smoking status: Current some day smoker Tobacco type: cigarettes Alcohol intake: current Substance use: current Substance use type: marijuana Last use: 07/01/19 Gender identity (if verbalized by the patient): Male Spiritual care concerns: No Agree to blood products: No Exam Narrative: Exam Narrative: APPEARANCE: No acute distress, nontoxic, resting in bed EYES: E PERRL HEENT: Normocephalic, atraumatic, OMM RESPIRATORY: No respiratory distress Clear to auscultation bilaterally with no rhonchi wheezing or rales. CARDIOVASCULAR: Regular rate and rhythm without murmurs rubs or gallops. ABDOMINAL: Soft, nontender, nondistended, no rebound or guarding MUSCULOSKELETAl: Moves all extremities. No clubbing, cyanosis or edema. NEURO: Awake and alert x 3. Following commands, speech normal, no focal deficits SKIN:: Warm, dry. No rashes lesions or abrasions PSYCHIATRIC: Normal affect/mood, Course Course Emergency Course: Patient has remained awake and alert throughout his stay in ED eating and drinking in ED with no difficulties Patient states he is ready to go home Discussed with patient results of workup and diagnosis. Discussed need for follow-up with primary care, proper use of medication, and reasons to return to the emergency department. Patient understands and agrees to current treatment plan Vital Signs Vital signs: Vital Signs Temperature 98 F 09/14/20 01:54 Pulse Rate 122 H 09/14/20 01:54 Respiratory Rate 36 H 09/14/20 01:54 Blood Pressure 149/109 H 09/14/20 01:54 Pulse Oximetry 100 09/14/20 01:54 Temperature 98 F 09/14/20 01:54 Pulse Rate 118 H 09/14/20 05:45 Respiratory Rate 20 09/14/20 05:45 Blood Pressure 133/79 09/14/20 04:06 Pulse Oximetry 100 09/14/20 05:45 MDM - Overdose MDM Narrative Medical decision making narrative: Patient presents for opioid overdose state he snorted medication he got but is unsure what it is given need of
--- NOTE | 2020-09-14 02:50 | PC.NURSE ---
Addendum entered by Harriett Morales RN 09/14/20 02:55: Food given, will continue to monitor Original Note: RN instructed per ERP to not call poison control due to unknown substance or amount ingested. Food give, will continue to mx pt for adverse reactions .
--- NOTE | 2020-09-14 02:53 | PC.NURSE ---
Rn instructed to monitor pt on cardiac leads, no orders for labs or EKG from ERP.
[2020-09-14] MEDS: SODIUM CHLORIDE 0.9% IV 1,000 ML 999 ML IV CONT (05:04)
--- NOTE | 2020-09-14 05:45 | PC.NURSE ---
Pt trying to find ride. Unable at this time.
== END 2020-09-14 06:33 | disposition home or self-care (01) ==
PROVIDERS: Emergency Provider Emergency Medicine
DX: T40.2X1A Poisoning by other opioids, accidental (unintentional), initial encounter (principal); F41.9 Anxiety disorder, unspecified; F32.9 Major depressive disorder, single episode, unspecified; F17.210 Nicotine dependence, cigarettes, uncomplicated
CPT/HCPCS: 96360; 99283; J7030

== ENCOUNTER 2021-09-11 09:18 | Inpatient (IN) | payer OTHER, SELFPAY ==
[2021-09-11] VITALS (17 sets, daily range): BP systolic 114–151; BP diastolic 80–101; PULSE 96–126; RESP 18–24; TEMP 36.8–37.4; O2SAT 18–99; BMI 21.7
--- NOTE | ~2021-09-11 | CT_ITS ---
EXAMINATION: CT abdomen pelvis w con EXAM DATE: 09/11/2021 10:48 INDICATION: Upper ABD pain, ETOH use, N/V. TECHNIQUE: Spiral CT of the abdomen and pelvis was performed following intravenous injection of 100 m L Omnipaque 350. Axial, coronal and sagittal images of the abdomen and pelvis were reviewed. The do se-length product (DLP) for this examination was 276.93 mGy-cm. The exposure was tailored according to patient size (auto mA exposure control), and iterative reconstruction (ASIR) was used as additiona l dose reduction technique. There is no prior study for comparison. FINDINGS: There is severe hepatic steatosis. There is rather extensive peripancreatic fat stranding, acute pancreatitis. Several small low density regions within the pancreas likely parenchymal edema, a lthough early small regions of necrosis not excludable. No pseudocyst or splenic venous thrombosis. Spleen, adrenal glands are unremarkable. Gallbladder is unremarkable. No biliary obstruction. Xenia l and splenic veins are patent. Kidneys enhance symmetrically. There is no hydronephrosis. The pr ostate is unremarkable. The bladder is unremarkable. There is no retroperitoneal or pelvic lymphade nopathy. There are no findings to suggest appendicitis. There is ascending and transverse colonic edema which is probably reactive from the pancreatitis. The stomach and small bowel are unremarkable. There is e xpected amount of colonic stool. No free intraperitoneal gas. The heart is normal in size. There are no pericardial or pleural effusions. The lung bases are unremarkable. The bones are unremarkab le. IMPRESSION: 1. Findings consistent with severe acute pancreatitis. 2. Right hemicolonic edema probably reactive. 3. Hepatic steatosis. Reviewed, dictated and finalized at location A.
--- NOTE | 2021-09-11 09:29 | ED.ABDPAIN ---
HPI - Abdominal Pain General Chief Complaint: Abdominal Pain <SHARYN Wang Last Filed: 09/11/21 13:27> Stated Complaint: abd pain, vomiting, anxiety <SHARYN Wang Last Filed: 09/11/21 13:27> Time Seen by Provider: 09/11/21 09:26 <SHARYN Wang Last Filed: 09/11/21 13:27> Source: patient and family <SHARYN Wang Last Filed: 09/11/21 13:27> Mode of arrival: ambulatory <SHARYN Wang Last Filed: 09/11/21 13:27> Limitations: no limitations <SHARYN Wang Last Filed: 09/11/21 13:27> History of Present Illness HPI narrative: Patient is a 35-year-old male who presents the ED with report of epigastric ABD pain. Patient reports he was drinking alcohol yesterday and suddenly developed this pain around 7 PM last night. The pain has been constant since then. He also reports having nausea and vomiting. He has tried taking an antacid and pain medicine at home but was unable to keep these down. No hematemesis, rectal bleeding. Patient also reports having hot flashes, but denies any known fever, diarrhea, constipation, urinary symptoms. Patient is a daily alcohol drinker and drinks up to 1/5 of vodka a day. He does not think he has ever had withdrawal symptoms before, but is not sure. His mother at bedside reports the patient has had hypoglycemic seizures before, but no withdrawal seizures. She states she is not currently on any antiepileptics, though records do show a Hx of the patient being on Lamictal. Patient does not have a history of diabetes. <SHARYN Wang Last Filed: 09/11/21 13:27> Related Data Home Medications: Home Medications Medication Instructions Recorded Confirmed alprazolam [Xanax] 0.5 mg PO TID PRN 07/02/19 07/02/19 <SHARYN Wang Last Filed: 09/11/21 13:27> Allergies/Adverse Reactions: Allergies Allergy/AdvReac Type Severity Reaction Status Date / Time No Known Allergies Allergy Verified 09/11/21 09:26 <Azra Gallardo PA-C - Last Filed: 09/11/21 13:27> Review of Systems Review of Systems: CONSTITUTIONAL: Reports hot sweats. Denies fever. CARDIOVASCULAR: Denies chest pain. RESPIRATORY: Denies dyspnea. GASTROINTESTINAL: Reports epigastric abdominal pain, nausea, vomiting. Denies rectal bleeding, hematemesis, or diarrhea. GENITOURINARY: Denies dysuria or hematuria. SKIN: Denies rash or itching. MUSCULOSKELETAL: Denies back pain, joint pain, or myalgia. NEUROLOGIC: Denies headache, numbness, or weakness. <Azra Gallardo PA-C - Last Filed: 09/11/21 13:27> All systems reviewed & are unremarkable except as noted in HPI and below <Azra Gallardo PA-C - Last Filed: 09/11/21 13:27> [facility] Past Medical History Medical History: Medical History (Updated 09/11/21 @ 11:33 by Azra Gallardo PA-C) Anxiety Depression History of seizure Insomnia <Azra Gallardo PA-C - Last Filed: 09/11/21 13:27> Surgical History Surgical History: Surgical History No history of previous surgery <Azra Gallardo PA-C - Last Filed: 09/11/21 13:27> Family History Family History: Family History (Updated 09/11/21 @ 13:06 by Ashlee David RN) Father Acute myocardial infarction Hypertension <Azra Gallardo PA-C - Last Filed: 09/11/21 13:27> Social History Social History: Social History (Updated 09/11/21 @ 10:03 by Azra aGllardo PA-C) Social History: Patient lives at home with his mother and grandmother. He designates his mother, Dionne Cardoso, as his surrogate MDM. He wishes to be a Full Code. He has a primary care but does not remember the name as he has not seen them yet. Smoking packs per day: 0.25 Smoking cigarettes per day: 5.0 Years smoked: 15 Smoking pack-years: 3.75 Smoking status: Former smoker Tobacco type: cigarettes Second hand tobacco smoke exposure: Yes Alcohol intake: curre
[2021-09-11 09:38] LABS: Basophils Absolute Auto 0.1 K/mm3 (0.0-0.1); Basophils Percent Auto 0.6 % (0.2-1.2); Eosinophils Absolute Auto 0.4 K/mm3 (0-0.3); Eosinophils Percent Auto 3.3 % (0-4.4); Hematocrit 43.7 % (42.0-52.0); Hemoglobin 14.8 g/dL (14.0-18.0); Immature Granulocyte Absolute 0.05 K/mm3 (0.00-0.031); Immature Granulocyte Percent A 0.4 % (0-0.5); Lymphocytes Absolute Auto 0.75 K/mm3 (0.9-3.2); Lymphocytes Percent Auto 6.3 % (18.3-44.2); Mean Corpuscular HGB Conc 33.9 g/dl (32-36); Mean Corpuscular Hemoglobin 34.2 pg (26-34); Mean Corpuscular Volume 100.9 fl (80-100); Mean Platelet Volume 10.5 fl (7.4-10.4); Monocytes Absolute Auto 1.2 K/mm3 (0.1-0.6); Monocytes Percent Auto 10.3 % (2.6-8.5); Neutrophils Absolute Auto 9.4 K/mm3 (1.3-6.7); Neutrophils Percent Auto 79.1 % (45.5-73.1); Platelet Count Result 167 k/mm3 (150-375); Red Blood Count 4.33 M/mm3 (4.6-6.20); Red Cell Distribution Width 12.8 % (11.5-14.5); White Blood Count 11.9 K/mm3 (4.5-10.0)
[2021-09-11] MEDS: KETOROLAC 30 MG/ML VIAL (*BKC) IV PUSH (09:59)
[2021-09-11] MEDS: ONDANSETRON INJ 4 MG/2 ML VIAL IV PUSH ×3 (09:59→20:14)
[2021-09-11] MEDS: SODIUM CHLORIDE 0.9% IV 1,000 ML 999 ML IV CONT ×3 (09:59→18:19)
[2021-09-11 10:04] LABS: Add Urine Microscopic? YES; Appearance Urine Cloudy (Clear); Bilirubin Urine Negative (Negative); Blood Urine 2+ (Negative); Color Urine Amber (Yellow); Glucose Urine UA Negative (Negative); Ketones Urine 1+ mg/dL (Negative); Leukocyte Esterase Ur Negative LEU/UL (Negative); Mucus Urine Rare /lpf; Nitrate Urine Negative (Negative); Protein Urine 2+ mg/dL (Negative); RBC Urine 0-2 /hpf (0-2); Squamous Epithelial Cell Urine Rare /hpf (Few); WBC Urine 0-3 /hpf
[2021-09-11 10:32] LABS: Alanine Aminotransferase 111 U/L (4-50); Albumin Level 4.9 g/dL (3.5-5.1); Alkaline Phosphatase 121 U/L (38-126); Anion Gap 20 mmol/L (8-16); Aspartate Amino Transferase 254 U/L (17-59); Bilirubin,Total 1.3 mg/dL (0.2-1.3); Blood Urea Nitrogen 7 mg/dL (9-20); Calcium 9.3 mg/dL (8.4-10.2); Carbon Dioxide 16 mmol/L (22-30); Chloride 102 mmol/L (98-107); Estimated CRCL calculation 92 ml/min; Estimated Glomerular Filt Rate > 60; Glucose 118 mg/dL (65-110); Potassium 3.9 mmol/L (3.4-5.0); Sodium 138 mmol/L (137-145)
[2021-09-11 10:42] LABS: Lipase 9331 U/L (23-300)
[2021-09-11] MEDS: MORPHINE SULFATE (*CRX) 4 MG/ML INJ 2 MG IV PUSH ×6 (10:58→23:15)
[2021-09-11] MEDS: SODIUM CHLORIDE 0.9% IV 1,000 ML 125 ML IV CONT (12:45)
[2021-09-11] MEDS: LORazepam INJ (*CRX) 2 MG/ML VIAL IV PUSH (13:30)
[2021-09-11 14:04] LABS: Amphetamine Screen Urine Negative (Negative); Barbiturate Screen Urine Negative (Negative); Benzodiazepines Screen Urine Positive (Negative); Cannabinoid Screen Urine Negative (Negative); Cocaine Screen Urine Negative (Negative); Methadone Screen Urine Negative (Negative); Opiate Screen Urine Negative (Negative); Phencyclidine Screen Urine Negative (Negative)
[2021-09-11 14:10] LABS: Device ROOM AIR; Fractional Inspired Oxygen 21 %; HCO3 VBG 22.2 mEq/l (24.0-30.0); PCO2 VBG 37.9 mmHg (42.0-48.0); PO2 VBG 35.4 mmHg (35.0-45.0); pH VBG 7.386 (7.300-7.400)
[2021-09-11 14:17] LABS: Ethanol < 10 mg/dL (<10)
--- NOTE | 2021-09-11 14:32 | PM.IMHP ---
H&P: HPI History of Present Illness Date/Time: Patient requires inpatient monitoring with expected length of stay to exceed 2 midnights for management of care. 09/11/21 14:32 Chief Complaint: Abdominal pain Narrative: Mr. Contreras is a 35-year-old gentleman who presented to the emergency with complaints of acute abdominal pain that started last evening at 7:00 p.m.. Patient states he was having a drink with a friend and at 7:00 a.m. he began having intense abdominal pain in the middle of his abdomen. Patient states that pain was so severe that he asked his friend to go home he quit drinking his vodka. Patient states he then started drinking water thinking this may help with the abdominal pain, but the pain worsened. Patient states he then vomited x1 with no relief and did try drinking water again. Patient denied any further nausea or vomiting. Patient denies any hematemesis. Patient states he has continued to have abdominal pain. Patient states he does drink approximately 2 pt of vodka daily, but there will be times he does skip a few days in between pints. Patient states that his last meal eaten was yesterday at lunch. Patient states he has been having normal bowel movements and his last bowel movement was yesterday. Patient denies any diarrhea or constipation. Patient denies any hematochezia or melena. Patient states he does have high anxiety and will take his friends or relatives alprazolam when he is having a panic attack. Patient states he has never seen a provider for his anxiety. Patient states he does not feel like he has ever gone into alcohol withdrawals previously. Patient states he does have a history of anxiety as described above. Patient states he also has a history of seizure disorders and he was on medication, but quit taking the medication could see did not like the side effects. Patient states he cannot recall the name of the medication. Patient states he has not had a seizure since he quit taking the medication. Review of Systems Review of Systems: A 12 point review of systems was completed patient all pertinent positive and negative per HPI the remainder are unremarkable. [facility] Past Medical History Medical History (Updated 09/11/21 @ 11:33 by Azra Gallardo PA-C) Anxiety Depression History of seizure Insomnia Surgical History Surgical History No history of previous surgery Family History Family History (Updated 09/11/21 @ 13:06 by Ashlee David RN) Father Acute myocardial infarction Hypertension Social History Social History (Updated 09/11/21 @ 10:03 by Azra Gallardo PA-C) Social History: Patient lives at home with his mother and grandmother. He designates his mother, Dionne Cardoso, as his surrogate MDM. He wishes to be a Full Code. He has a primary care but does not remember the name as he has not seen them yet. Smoking packs per day: 0.25 Smoking cigarettes per day: 5.0 Years smoked: 15 Smoking pack-years: 3.75 Smoking status: Former smoker Tobacco type: cigarettes Second hand tobacco smoke exposure: Yes Alcohol intake: current Drinks per week: 30 Alcohol use details: drinks up to a fifth of vodka per day Substance use: former Substance use type: marijuana Last use: 2020 Gender identity (if verbalized by the patient): Male Spiritual care concerns: No Agree to blood products: No Meds Home Medications and Allergies Home Medications Medication Instructions Recorded Confirmed Type No Home Medications 09/11/21 09/11/21 History Allergies Allergy/AdvReac Type Severity Reaction Status Date / Time No Known Allergies Allergy Verified 09/11/21 09:26 Vital Signs Vital Signs - 24 hr 09/11/21 09:22 09/11/21 09:58 09/11/21 10:58 Temperature 36.9 C 37.4 C Pulse Rate 126 H 109 H 110 H Pulse Rate [Brachial Palpation] Respiratory Rate 20 19 24 H Blood Pressure 147/97
[2021-09-11] MEDS: chlorproMAZINE HCL INJ 50 MG/2 ML AMP 25 MG IM (16:49)
[2021-09-11 18:25] LABS: Glucose Point of Care 102 mg/dl (65-105)
[2021-09-11] MEDS: SODIUM CHLORIDE 0.9% IV 1,000 ML 150 ML IV CONT (20:01)
[2021-09-11] MEDS: chlordiazePOXIDE (*CRX) 25 MG CAPSULE PO (20:01)
[2021-09-11] MEDS: LORazepam INJ (*CRX) 2 MG/ML VIAL 1 MG IV PUSH (20:13)
[2021-09-12] VITALS (13 sets, daily range): BP systolic 133–143; BP diastolic 94–103; PULSE 110–158; RESP 20; TEMP 37.2–37.7; O2SAT 91–100
[2021-09-12 00:01] LABS: Glucose Point of Care 103 mg/dl (65-105)
[2021-09-12] MEDS: LORazepam INJ (*CRX) 2 MG/ML VIAL IV PUSH ×2 (00:07→14:23)
[2021-09-12] MEDS: SODIUM CHLORIDE 0.9% IV 1,000 ML 150 ML IV CONT ×3 (03:22→17:42)
[2021-09-12] MEDS: MORPHINE SULFATE (*CRX) 4 MG/ML INJ 2 MG IV PUSH ×5 (03:22→17:35)
[2021-09-12] MEDS: chlordiazePOXIDE (*CRX) 25 MG CAPSULE 50 MG PO ×3 (03:47→17:35)
[2021-09-12 05:28] LABS: Basophils Absolute Auto 0.1 K/mm3 (0.0-0.1); Basophils Percent Auto 0.7 % (0.2-1.2); Eosinophils Percent Auto 0.1 % (0-4.4); Hematocrit 39.3 % (42.0-52.0); Hemoglobin 13.4 g/dL (14.0-18.0); Immature Granulocyte Absolute 0.02 K/mm3 (0.00-0.031); Immature Granulocyte Percent A 0.3 % (0-0.5); Immature Platelet Fraction Pct 12.1 % (0.9-11.2); Mean Corpuscular HGB Conc 34.1 g/dl (32-36); Mean Corpuscular Hemoglobin 34.7 pg (26-34); Mean Corpuscular Volume 101.8 fl (80-100); Mean Platelet Volume 11.4 fl (7.4-10.4); Monocytes Absolute Auto 0.7 K/mm3 (0.1-0.6); Monocytes Percent Auto 10.3 % (2.6-8.5); Neutrophils Absolute Auto 5.5 K/mm3 (1.3-6.7); Neutrophils Percent Auto 82.6 % (45.5-73.1); Platelet Count Result 90 k/mm3 (150-375); Red Blood Count 3.86 M/mm3 (4.6-6.20); White Blood Count 6.7 K/mm3 (4.5-10.0)
[2021-09-12 05:48] LABS: Alanine Aminotransferase 87 U/L (4-50); Albumin Level 3.5 g/dL (3.5-5.1); Alkaline Phosphatase 73 U/L (38-126); Anion Gap 7 mmol/L (8-16); Aspartate Amino Transferase 205 U/L (17-59); Bilirubin,Total 1.4 mg/dL (0.2-1.3); Blood Urea Nitrogen 8 mg/dL (9-20); Calcium 7.8 mg/dL (8.4-10.2); Carbon Dioxide 23 mmol/L (22-30); Chloride 106 mmol/L (98-107); Estimated CRCL calculation 100 ml/min; Estimated Glomerular Filt Rate > 60; Glucose 95 mg/dL (65-110); Magnesium 1.5 mg/dL (1.6-2.3); Potassium 3.6 mmol/L (3.4-5.0); Sodium 136 mmol/L (137-145)
[2021-09-12] MEDS: ONDANSETRON INJ 4 MG/2 ML VIAL IV PUSH (05:51)
[2021-09-12 06:04] LABS: Lipase 7019 U/L (23-300)
[2021-09-12 06:15] LABS: Glucose Point of Care 95 mg/dl (65-105)
[2021-09-12] MEDS: THIAMINE HCL 200 MG/2 ML VIAL 100 MG IV PUSH (08:07)
[2021-09-12] MEDS: METOPROLOL TARTRATE INJ 5 MG/5 ML VIAL IV PUSH (08:48)
--- NOTE | 2021-09-12 09:27 | PM.IMPN ---
Progress Note: A&P Assessment and Plan (1) Acute pancreatitis: Qualifiers: Acute pancreatitis complication: uninfected necrosis Pancreatitis type: unspecified pancreatitis type Qualified Code(s): K85.91 - Acute pancreatitis with uninfected necrosis, unspecified Code(s): K85.90 - Acute pancreatitis without necrosis or infection, unspecified Status: Acute Assessment and Plan: Patient is wanting to eat is talking about leaving the hospital. I strongly recommended he stay at keep NPO for now. Continue IV fluids. Trend lipase. (2) Alcohol abuse: Code(s): F10.10 - Alcohol abuse, uncomplicated Status: Acute Assessment and Plan: Patient's alcohol level is less than 10 at this time. Patient will be placed on CIWA protocol and have p.r.n. Ativan available. Patient will also be placed on b.i.d. Librium as he as having tremors and he is tachycardic at this time. Did discuss in depth with patient that he would need to quit drinking in order to not have repeated bouts of pancreatitis. Case management to help with programs for alcohol abuse. (3) History of seizure: Code(s): Z87.898 - Personal history of other specified conditions Status: Acute Assessment and Plan: Patient states he has a history of seizure disorder and quit taking his medications well over 6 years ago because he did not like the side effects. Patient states he has not had a seizure since that time. Monitor and continue CIWA protocol (4) Anxiety: Code(s): F41.9 - Anxiety disorder, unspecified Status: Acute Assessment and Plan: Patient states he does have a history of anxiety, but he has never seen a provider for this diagnosis. Currently on CIWA protocol. Needs to follow up with the primary care physician or psychiatrist as outpatient. Subjective Date/time seen: 09/12/21 09:27 Patient reports feeling better. Pain is slightly better as well. He is wanting to eat. Review of Systems Review of Systems: All systems reviewed & are unremarkable except as noted in HPI and below Exam Narrative: Constitutional: Patient is well-nourished in no acute distress. Patient is alert and oriented x3 HEENT: Moist mucous membranes. No scleral icterus. No lymphadenopathy. Neck: No carotid bruits noted no JVD noted Lungs: Lung sounds are clear to auscultation bilaterally. No accessory muscle use. No rhonchi, rales, or wheezes noted. Cardiovascular: Apical pulse is regular rhythm and tachycardic. S1-S2 noted, no S3 or S4 noted. No gallops, murmurs, or rubs noted. Abdomen: Soft and round. Patient complains of tenderness to entire abdomen with light palpation. Extremities: No edema. Nontender. Skin: No rashes or lesions. Warm and dry. Skin is intact. Neurological: No focal neurological deficits. Cranial nerves II-XII grossly intact. Psychiatric: Patient is Cooperative, and appears moderately anxious. Patient does have tremors and he states that is from his anxiety at this time. Objective Data Vital Signs Vital Signs: Vital Signs - 24 hr 09/11/21 09:58 09/11/21 10:58 09/11/21 11:41 Temperature 99.4 F Pulse Rate 109 H 110 H 102 H Pulse Rate [Brachial Palpation] Respiratory Rate 19 24 H 19 Blood Pressure 141/98 H 151/101 H 134/98 H Pulse Oximetry 18 L 99 97 09/11/21 12:28 09/11/21 12:51 09/11/21 13:12 Temperature 98.4 F Pulse Rate 101 H 109 H 113 H Pulse Rate [Brachial Palpation] Respiratory Rate 18 24 H Blood Pressure 135/96 H Pulse Oximetry 97 98 09/11/21 14:10 09/11/21 14:23 09/11/21 15:12 Temperature 98.2 F Pulse Rate 114 H Pulse Rate [Brachial Palpation] 110 H 102 H Respiratory Rate 24 H Blood Pressure 114/80 Pulse Oximetry 98 09/11/21 16:00 09/11/21 18:05 09/11/21 19:37 Temperature 98.2 F 99 F Pulse Rate 100 112 H 111 H Pulse Rate [Brachial Palpation] 96 Respiratory Rate 20 20 Blood Pressure 136/82 140/95 H Pulse Oximetry 9
[2021-09-12] MEDS: LORazepam INJ (*CRX) 2 MG/ML VIAL 1 MG IV PUSH (10:37)
[2021-09-12 12:35] LABS: Glucose Point of Care 96 mg/dl (65-105)
[2021-09-12] MEDS: SODIUM CHLORIDE 0.9% IV 1,000 ML 999 ML IV CONT (15:59)
[2021-09-12] MEDS: NICOTINE (*PBKC) 14 MG PATCH 1 PATCH TRANSDERM (15:59)
--- NOTE | 2021-09-12 18:43 | PC.NURSE ---
Patient notified of risks of leaving AMA. Dr. Hopkins notified. Follow up instructions given to patient. Patient signed AMA form.
--- NOTE | 2021-09-21 09:57 | P.DS_ITS ---
DS: Admitting Diagnosis Discharge Date 09/12/21 Patient left AMA Admitting Diagnosis Pancreatitis DS: Discharge Diagnosis Discharge Diagnosis (1) Acute pancreatitis: Qualifiers: Acute pancreatitis complication: uninfected necrosis Pancreatitis type: unspecified pancreatitis type Qualified Code(s): K85.91 - Acute pancreatitis with uninfected necrosis, unspecified Code(s): K85.90 - Acute pancreatitis without necrosis or infection, unspecified Status: Acute DS: Summary Hospital Course Hospital Course: Patient was admitted for pancreatitis and treated appropriately. He was slowly improving but he left AMA ultimately. Time Spent with Patient Time attestation: Total time spent providing and/or coordinating discharge services: Less than 30 min Discharge Plan Discharge Consulting providers: Chidi Diamond ; Azra Gallardo ; Erwin Hopkins ; Timmy Souza ; Aide Baldwin Patient Disposition: Left Against Medical Advice Discharge Medications: No Action No Home Medications RF: 0 Date of admission: 09/11/21 13:13 Primary Care Provider: PHYSICIAN,CARPET INSTALLER HELPER Admitting Provider: Katharina Houston Attending physician on admission: Katharina Houston Condition: Stable
== END 2021-09-12 18:35 | disposition left against medical advice (07) | DRG 282 ==
LOC: ANHED 11:37 → ANH2MED 12:04
PROVIDERS: Nurse Practitioner Adult Health; Admitting Provider Hospitalist; Emergency Provider Emergency Medicine; Visit Provider Hospitalist
DX: K85.91 Acute pancreatitis with uninfected necrosis, unspecified (principal); F10.10 Alcohol abuse, uncomplicated; Y90.0 Blood alcohol level of less than 20 mg/100 ml; F41.9 Anxiety disorder, unspecified; Z87.891 Personal history of nicotine dependence; Z87.898 Personal history of other specified conditions
CPT/HCPCS: 36415; 74177; 80053; 80307; 81001; 82803; 82948; 83690; 83735; 83930; 85025; 85055; 96361; 96374; 96375; 99285; A9270; G0378; G0379; J1885; J2060; J2270; J2405; J3230; J3411; J7030; Q9967

== ENCOUNTER 2021-12-12 11:52 | Inpatient (IN) | payer OTHER, SELFPAY ==
[2021-12-12] VITALS (7 sets, daily range): BP systolic 129–146; BP diastolic 68–104; PULSE 71–92; RESP 16–20; TEMP 36.2–37; O2SAT 94–100
--- NOTE | ~2021-12-12 | CT_ITS ---
EXAMINATION: CT abdomen pelvis w con DATE: 12/12/2021 14:04 INDICATION: Right lower quadrant and epigastric pain and elevated lipase. TECHNIQUE: Computed tomography (CT) of the abdomen and pelvis was performed without intravenous contr ast. Automated exposure control and iterative reconstruction technique were employed. The dose-length product was 226.75 mGy-cm. COMPARISON: 09/11/2021 FINDINGS: Lung bases are clear. The visualized inferior heart is normal. No pericardial or pleural effusion. Mi ld edematous wall thickening in the distal esophagus consistent with esophagitis which may be related to reported history of vomiting. Diffuse hepatic steatosis with focal sparing along the gallbladder fossa. Gallbladder, spleen, bilateral adrenal glands and kidneys are normal. Again seen is diffuse pe ripancreatic inflammatory stranding consistent with ongoing or recurrent acute interstitial pancreati tis. There is a 3.7 x 3.6 cm complex loculated fluid collection at the head of the pancreas with thin peripheral enhancing wall and with heterogeneous internal attenuation which would be most consistent with walled off necrosis. Bowels including the appendix are normal. There is diffuse wall thickening of the bladder which could be due to incomplete distention or cystitis either acute or chronic. No f ree intraperitoneal gas or fluid. No pathologically enlarged abdominal or pelvic lymphadenopathy. Min imal lumbar levocurvature. IMPRESSION: 1. Acute or ongoing chronic interstitial pancreatitis with 3.7 x 3.6 cm walled off necrosis of the he ad of the pancreas new since the prior study. 2. Diffuse hepatic steatosis. 3. Mild edematous wall thickening the distal esophagus consistent with esophagitis likely related to vomiting. Reviewed, dictated and finalized at location A. IMPRESSION: 1. Acute or ongoing chronic interstitial pancreatitis with 3.7 x 3.6 cm walled off necrosis of the head of the pancreas new since the prior study. 2. Diffuse hepatic steatosis. 3. Mild edematous wall thickening the distal esophagus consistent with esophagi tis likely related to vomiting.
[2021-12-12 12:29] LABS: Basophils Absolute Auto 0.1 K/mm3 (0.0-0.1); Basophils Percent Auto 0.8 % (0.2-1.2); Eosinophils Absolute Auto 0.2 K/mm3 (0-0.3); Eosinophils Percent Auto 1.8 % (0-4.4); Hematocrit 48.5 % (42.0-52.0); Hemoglobin 16.6 g/dL (14.0-18.0); Immature Granulocyte Absolute 0.02 K/mm3 (0.00-0.031); Immature Granulocyte Percent A 0.2 % (0-0.5); Lymphocytes Percent Auto 10.4 % (18.3-44.2); Mean Corpuscular HGB Conc 34.2 g/dl (32-36); Mean Corpuscular Hemoglobin 33.8 pg (26-34); Mean Corpuscular Volume 98.8 fl (80-100); Mean Platelet Volume 10.7 fl (7.4-10.4); Monocytes Absolute Auto 0.7 K/mm3 (0.1-0.6); Monocytes Percent Auto 6.1 % (2.6-8.5); Neutrophils Absolute Auto 9.3 K/mm3 (1.3-6.7); Neutrophils Percent Auto 80.7 % (45.5-73.1); Platelet Count Result 244 k/mm3 (150-375); Red Blood Count 4.91 M/mm3 (4.6-6.20); Red Cell Distribution Width 15.8 % (11.5-14.5); White Blood Count 11.6 K/mm3 (4.5-10.0)
[2021-12-12 12:30] LABS: Appearance Urine Clear (Clear); Bilirubin Urine 1+ (Negative); Blood Urine Negative (Negative); Color Urine Yellow (Yellow); Glucose Urine UA Negative (Negative); Ketones Urine 1+ mg/dL (Negative); Leukocyte Esterase Ur Negative LEU/UL (Negative); Nitrate Urine Negative (Negative); Protein Urine 2+ mg/dL (Negative); Specific Grav Ur 1.015 (1.001-1.035); pH Urine >=9.0 (5.0-9.0)
[2021-12-12 12:35] LABS: Bacteria Urine Trace /hpf; Mucus Urine Rare /lpf; RBC Urine 0-2 /hpf (0-2); Squamous Epithelial Cell Urine Rare /hpf (Few); WBC Urine 0-3 /hpf
[2021-12-12 12:39] LABS: Add Urine Microscopic? YES
[2021-12-12 13:04] LABS: Alanine Aminotransferase 93 U/L (6-50); Albumin Level 4.6 g/dL (3.5-5.1); Alkaline Phosphatase 132 U/L (38-126); Anion Gap 7 mmol/L (8-16); Aspartate Amino Transferase 112 U/L (17-59); Bilirubin,Total 0.9 mg/dL (0.2-1.3); Blood Urea Nitrogen 5 mg/dL (9-20); Calcium 9.5 mg/dL (8.4-10.2); Carbon Dioxide 27 mmol/L (22-30); Chloride 103 mmol/L (98-107); Estimated CRCL calculation 90 ml/min; Estimated Glomerular Filt Rate > 60; Glucose 124 mg/dL (65-110); Potassium 3.6 mmol/L (3.4-5.0); Sodium 137 mmol/L (137-145)
--- NOTE | 2021-12-12 13:11 | ED.ABDPAIN ---
HPI - Abdominal Pain General Chief Complaint: Abdominal Pain <SHARYN Wang Last Filed: 12/12/21 16:34> Stated Complaint: abd pain <SHARYN Wang Last Filed: 12/12/21 16:34> Time Seen by Provider: 12/12/21 12:55 <SHARYN Wang Last Filed: 12/12/21 16:34> Source: patient <SHARYN Wang Last Filed: 12/12/21 16:34> Mode of arrival: ambulatory <SHARYN Wang Last Filed: 12/12/21 16:34> Limitations: no limitations <SHARYN Wang Last Filed: 12/12/21 16:34> History of Present Illness HPI narrative: Patient is a 36-year-old male who presents to the ED with report of abdominal pain. Patient reports he first developed pain in his left upper quadrant last night. He states the pain was mild at first. Today, the pain has radiated across his abdomen and become very severe, prompting his presentation to the ED. Patient has a history of alcoholism and pancreatitis and states his current pain feels similar. He reports to me that he has not drank alcohol in several days. He has tried taking Tylenol at home for the pain without relief. He also reports having nausea and vomiting, unable to keep down any food or drink. Chills and sweats, but no documented fever. No blood in vomit or stool. No constipation. Last bowel movement last night. No urinary symptoms. <SHARYN Wang Last Filed: 12/12/21 16:34> Related Data Home Medications: Home Medications Medication Instructions Recorded Confirmed No Home Medications 09/11/21 09/11/21 <SHARYN Wang Last Filed: 12/12/21 16:34> Allergies/Adverse Reactions: Allergies Allergy/AdvReac Type Severity Reaction Status Date / Time No Known Allergies Allergy Verified 12/12/21 12:04 <SHARYN Wang Last Filed: 12/12/21 16:34> Review of Systems Review of Systems: CONSTITUTIONAL: Reports chills or sweats. Denies fever. ENT: Denies rhinorrhea, congestion, sore throat. CARDIOVASCULAR: Denies chest pain. RESPIRATORY: Denies cough or dyspnea. GASTROINTESTINAL: Reports upper ABD pain, N/V. Denies constipation, hematemesis, rectal bleeding, or diarrhea. GENITOURINARY: Denies dysuria or hematuria. MUSCULOSKELETAL: Denies back pain, joint pain, or myalgia. NEUROLOGIC: Denies headache, numbness, or weakness. <Azra Gallardo PA-C - Last Filed: 12/12/21 16:34> All systems reviewed & are unremarkable except as noted in HPI and below <Azra Gallardo PA-C - Last Filed: 12/12/21 16:34> PMFSH Past Medical History Medical History: Medical History Anxiety Depression Insomnia Pancreatitis Seizure <Azra Gallardo PA-C - Last Filed: 12/12/21 16:34> Surgical History Surgical History: Surgical History No history of previous surgery <Azra Gallardo PA-C - Last Filed: 12/12/21 16:34> Family History Family History: Family History Father Acute myocardial infarction Hypertension <Azra Gallardo PA-C - Last Filed: 12/12/21 16:34> Social History Social History: Social History Social History: Surrogate medical decision maker: Dionne Cardoso, mother. Code status: Full code. Smoking packs per day: 0.25 Smoking cigarettes per day: 5.0 Years smoked: 15 Smoking pack-years: 3.75 Smoking status: Former smoker Tobacco type: cigarettes Second hand tobacco smoke exposure: Yes Alcohol intake: current Drinks per week: 30 Alcohol use details: drinks up to a fifth of vodka per day Substance use: former Substance use type: marijuana Last use: 2019 Living arrangements: with family Additional living arrangements comments: Lives with mother and grandmother. Spiritual care concerns: No Agree to blood prod
[2021-12-12 13:22] LABS: Lipase 8983 U/L (23-300)
--- NOTE | 2021-12-12 13:24 | PC.NURSE ---
pt mom called to share pt had suffered from fall approx 4-5 days ago and that he hit his head/has been vomiting intermittently since. EDP made aware.
[2021-12-12] MEDS: SODIUM CHLORIDE 0.9% IV 1,000 ML 999 ML IV CONT ×2 (13:37→15:42)
[2021-12-12] MEDS: MORPHINE SULFATE (*CRX) 4 MG/ML INJ IV PUSH (13:37)
[2021-12-12] MEDS: ONDANSETRON INJ 4 MG/2 ML VIAL IV PUSH ×2 (13:37→21:27)
--- NOTE | 2021-12-12 14:13 | PC.NURSE ---
pt reported RAC SLN was uncomfortable, bruise noted but no sign of infiltration. RAC SLN removed
[2021-12-12 14:52] LABS: SARS-CoV-2 RNA PCR Negative
[2021-12-12] MEDS: HYDROmorphone HCL INJ (*CRX) 1 MG/ML SYR IV PUSH (15:42)
--- NOTE | 2021-12-12 15:45 | PM.IMHP ---
H&P: HPI History of Present Illness Date/Time: 12/12/21 15:45 Chief Complaint: Abdominal pain. Narrative: This is a 36-year-old male smoker with a longstanding history of alcohol abuse, seizures, and pancreatitis who presented to the emergency department from home for evaluation of abdominal pain. He began having pain in his left upper abdomen last evening and he describes a severe gnawing and occasional stinging pain that has been constant since the outset. Initially he thought perhaps he was constipated so he took a stool softener without much benefit. He is also tried taking Tylenol though that did not help either. This morning he began to feel nauseated and he had several episodes of emesis and due to ongoing symptoms he came in for evaluation. He had similar symptoms a couple of months ago and was hospitalized for a couple of days before leaving against medical advice. Before that hospitalization he was drinking up to 3 pt of vodka a day but he has scaled back on the amount of alcohol he is drinking, now maybe 1 to 2 pt of vodka a day. CT of the abdomen and pelvis shows acute or ongoing chronic interstitial pancreatitis with a walled-off area of necrosis and he is being admitted in this setting. He last had a drink of alcohol yesterday morning and he is noted to have some tremors of his hands at the time my evaluation though he in his mom states that is pretty chronic for him due to his constant angst. At the time my evaluation he is feeling a bit better after receiving morphine and lorazepam. He has had chills and sweats but no fever. No hematemesis, melena, or hematochezia. He denies chest pain and shortness of breath. No hallucinations. Review of Systems Review of Systems: Twelve systems were reviewed. He has a history of seizures and was on anti seizure medications for a period of time but is no longer. He does not know if he was diagnosed with alcohol withdrawal seizures or epilepsy. No cold or flu symptoms. No sick contacts. He has occasional heartburn for which he will take Tums. Except as documented, all other systems were reviewed and are negative. [facility] Past Medical History Medical History Alcohol abuse Anxiety Depression Insomnia Pancreatitis Seizure Tobacco use Surgical History Surgical History No history of previous surgery Family History Family History Father Acute myocardial infarction Hypertension Mother Kidney disease Social History Social History (Updated 12/12/21 @ 21:02 by Gisela Adler PA-C) Social History: Surrogate medical decision maker: Dionne Cardoso, mother. Code status: Full code. Smoking packs per day: 0.5 Smoking cigarettes per day: 10.0 Years smoked: 15 Smoking pack-years: 7.50 Smoking status: Current every day smoker Tobacco type: cigarettes Second hand tobacco smoke exposure: Yes Alcohol intake: current Alcohol use details: 1 to 3 pints of vodka a day. Substance use: former Substance use type: does not use and marijuana Last use: 2019 Living arrangements: with family Additional living arrangements comments: Lives with mother and grandmother. Additional occupation/education comments: Unemployed. Spiritual care concerns: No Agree to blood products: No Meds Home Medications and Allergies Home Medications Medication Instructions Recorded Confirmed Type No Home Medications 09/11/21 12/12/21 History Allergies Allergy/AdvReac Type Severity Reaction Status Date / Time No Known Allergies Allergy Verified 12/12/21 16:47 Vital Signs Vital Signs - 24 hr 12/12/21 12:02 12/12/21 13:30 Temperature 97.6 F 97.9 F Pulse Rate 91 76 Respiratory Rate 16 16 Blood Pressure 146/104 H 130/68 Pulse Oximetry 94 100 Oxygen Delivery Room Air Exam Narrative: General: Thin, moderately appearing male lying
[2021-12-12] MEDS: LORazepam INJ (*CRX) 2 MG/ML VIAL 1 MG IV PUSH ×2 (16:05→21:39)
--- NOTE | 2021-12-12 16:17 | PC.NURSE ---
went to give pt lorazepam and he reported he does not like to take medication and only wanted 1/2 a dose so 0.5mg of ativan given. AZUCENA Oquendo was notified
--- NOTE | 2021-12-12 16:46 | ADMGEN ---
This patient, Lenin Contreras II, was admitted to 2 Medical Room 257-01. Patient/family oriented to hospital policies and general routines including ID bracelet, bed and alarms, visiting hours, pain management, procedures, bathroom and other care routines, personal items, smoking policy, room service/diet, and visiting hours. Information on how to activate the Rapid Response Team has been discussed. Patient/Family are encouraged to report perceived risks to care and to ask questions if they do not understand what they are told or what they should do.
[2021-12-12] MEDS: chlordiazePOXIDE (*CRX) 10 MG CAPSULE PO ×2 (18:13→21:55)
[2021-12-12] MEDS: MORPHINE SULFATE (*CRX) 2 MG/ML INJ IV PUSH ×2 (18:14→21:27)
[2021-12-12] MEDS: THIAMINE HCL 200 MG/2 ML VIAL 100 MG IV PUSH (21:57)
[2021-12-13] MEDS: MORPHINE SULFATE (*CRX) 2 MG/ML INJ IV PUSH ×6 (01:10→17:13)
[2021-12-13] MEDS: SODIUM CHLORIDE 0.9% IV 1,000 ML 150 ML IV CONT ×4 (01:10→20:13)
[2021-12-13 04:07] VITALS: BP 130/98; PULSE 97; RESP 18; TEMP 37.1; O2SAT 99
[2021-12-13] MEDS: LORazepam INJ (*CRX) 2 MG/ML VIAL 1 MG IV PUSH (04:49)
[2021-12-13] MEDS: chlordiazePOXIDE (*CRX) 10 MG CAPSULE PO (06:15)
--- NOTE | 2021-12-13 07:21 | PM.IMPN ---
Progress Note: A&P Assessment and Plan (1) Acute pancreatitis with uninfected necrosis: Code(s): K85.91 - Acute pancreatitis with uninfected necrosis, unspecified Status: Acute Assessment and Plan: Most likely related to alcohol consumption. Second episode of pancreatitis this year. CT scan shows diffuse peripancreatic inflammatory stranding and 3.7x3.6 cm loculated fluid likely walled off necrosis. Continue aggressive hydration. Pain control with IV Morphine PRN, change to Q2 hours. Zofran 4 mg IV Q4 hours PRN. Continue NPO until pain is improved. lipase 8983 to 6087. LFTs improved with hydration. WBC 10.8 and improved. He was counseled in-depth about alcohol abstinence. (2) Transaminitis: Code(s): R74.01 - Elevation of levels of liver transaminase levels Status: Acute Assessment and Plan: Likely due to a combination of alcohol use and hepatis steatosis. No cholelithiasis or evidence of cholecystitis on imaging. hepatitis panel pending. Repeat LFTs improving today. (3) Dehydration: Code(s): E86.0 - Dehydration Status: Acute Assessment and Plan: Continue aggressive rehydration as above (4) Alcohol abuse: Code(s): F10.10 - Alcohol abuse, uncomplicated Status: Acute Assessment and Plan: Patient drinks approximately 5th of vodka per day. Last drink Monday morning. Counseled on alcohol cessation. We discussed complications of alcohol abuse including liver cirrhosis and chronic pancreatitis. His hepatic steatosis and pancreatitis diagnosis were discussed at length. Continue CIWA protocol Q4 hours with PRN valium IV for CIWA >8. Started on thiamine, multivitamin and folic acid supplementation. Increase librium 25 mg Q8 hours. Highest CIWA score 13 to 4 today after IV benzodiazepines PRN. (5) Esophagitis: Code(s): K20.90 - Esophagitis, unspecified without bleeding Status: Acute Assessment and Plan: Continue IV pantoprazole. (6) Seizures: Code(s): R56.9 - Unspecified convulsions Status: Chronic Assessment and Plan: Previously treated with Lamictal, which he stopped more than a few months ago due to side effects. PRN ativan 4 mg IV for seizure activity. Seizure precautions. Plan Disposition: Home with family Estimated LOS: 2-3 days CODE STATUS: FULL CODE Time Spent With Patient Time with patient: 25 - 35 minutes Subjective Date/time seen: 12/13/21 07:21 He reports the epigastric pain is stabbing and persists. It is 5-8/10 and does improve with morphine, although it does not last and he has to stay completely still. He has nausea, but no emesis. He has some tremors and is anxious were nursing. No chest pain, SOB, or diarrhea. He is afebrile. Review of Systems Review of Systems: All systems reviewed & are unremarkable except as noted in HPI and below Exam Narrative: General: Thin, mildly ill-appearing male lying in bed. BMI 18. Mild distress. HEENT: Normocephalic. Atraumatic. PERRL, EOMI. Conjunctivae anicteric. Mucous membranes dry. Tongue midline. Oropharynx clear. Neck: Supple. Respiratory: Lungs are clear to auscultation bilaterally. No retractions. Cardiovascular: Regular rate and rhythm with S1-S2. No murmur, gallop or rub. Gastrointestinal: Abdomen is soft, flat, and non-distended with positive bowel sounds. Moderate to severe tenderness to light palpation epigastric region. Skin: Warm and dry. Generalized pallor. No rashes or lesions. Skin intact. Extremities: No cyanosis, clubbing, or edema. Neurological: Alert and oriented x3. Mild visible tremor bilateral hands. No hallucinations. Cranial nerves 2-12 are grossly intact. No gross focal deficits to casual conversation. Psychiatric: Pleasant and cooperative. Chatty. Moderately anxious. Speech non-pressured Objective Data Vital Signs Vital Signs: Vital Signs - 2
[2021-12-13 08:00] VITALS: BP 130/98
[2021-12-13] MEDS: THIAMINE HCL 100 MG TABLET PO (08:33)
[2021-12-13] MEDS: FOLIC ACID 1 MG TABLET PO (08:33)
[2021-12-13] MEDS: PANTOPRAZOLE SODIUM IV 40 MG VIAL IV PUSH ×2 (08:33→20:22)
[2021-12-13] MEDS: THERAPEUTIC MULTIVITAMINS/MINERALS TAB (*BKC) 1 TABLET PO (08:33)
[2021-12-13 09:17] LABS: Basophils Percent Auto 0.2 % (0.2-1.2); Eosinophils Absolute Auto 0.1 K/mm3 (0-0.3); Eosinophils Percent Auto 0.7 % (0-4.4); Hematocrit 40.7 % (42.0-52.0); Hemoglobin 14.3 g/dL (14.0-18.0); Immature Granulocyte Absolute 0.05 K/mm3 (0.00-0.031); Immature Granulocyte Percent A 0.5 % (0-0.5); Lymphocytes Absolute Auto 0.76 K/mm3 (0.9-3.2); Lymphocytes Percent Auto 7.1 % (18.3-44.2); Mean Corpuscular HGB Conc 35.1 g/dl (32-36); Mean Corpuscular Volume 96.7 fl (80-100); Mean Platelet Volume 10.7 fl (7.4-10.4); Monocytes Absolute Auto 0.7 K/mm3 (0.1-0.6); Monocytes Percent Auto 6.6 % (2.6-8.5); Neutrophils Absolute Auto 9.1 K/mm3 (1.3-6.7); Neutrophils Percent Auto 84.9 % (45.5-73.1); Platelet Count Result 145 k/mm3 (150-375); Red Blood Count 4.21 M/mm3 (4.6-6.20); Red Cell Distribution Width 15.5 % (11.5-14.5); White Blood Count 10.8 K/mm3 (4.5-10.0)
[2021-12-13 09:23] LABS: Alanine Aminotransferase 61 U/L (6-50); Albumin Level 3.6 g/dL (3.5-5.1); Alkaline Phosphatase 98 U/L (38-126); Anion Gap 8 mmol/L (8-16); Aspartate Amino Transferase 54 U/L (17-59); Bilirubin,Total 0.8 mg/dL (0.2-1.3); Blood Urea Nitrogen 4 mg/dL (9-20); Calcium 8.4 mg/dL (8.4-10.2); Carbon Dioxide 20 mmol/L (22-30); Chloride 103 mmol/L (98-107); Estimated CRCL calculation 117 ml/min; Estimated Glomerular Filt Rate > 60; Glucose 94 mg/dL (65-110); Potassium 3.9 mmol/L (3.4-5.0); Sodium 131 mmol/L (137-145)
[2021-12-13 09:57] LABS: Hepatitis B Surface Antigen Negative (Negative)
[2021-12-13 10:03] LABS: HAV RESULT Negative (Negative); Hepatitis B Core IgM Result Negative (Negative)
[2021-12-13 10:14] LABS: Hepatitis C Virus Antibody Negative (Negative)
[2021-12-13 10:36] LABS: Lipase 6087 U/L (23-300)
[2021-12-13] MEDS: ONDANSETRON INJ 4 MG/2 ML VIAL IV PUSH ×2 (10:37→20:13)
[2021-12-13 11:27] VITALS: BMI 18.2
[2021-12-13 12:00] VITALS: BP 151/103
[2021-12-13] MEDS: diazePAM INJ (*CRX) 10 MG/2 ML SYRINGE 5 MG IV PUSH (12:22)
[2021-12-13] MEDS: chlordiazePOXIDE (*CRX) 25 MG CAPSULE PO ×2 (14:04→22:28)
[2021-12-13 14:24] VITALS: BP 136/106; PULSE 95; RESP 18; TEMP 36.7; O2SAT 100
--- NOTE | 2021-12-13 15:16 | PCNSR ---
On 12/13/21, the student, Meg Cassidy, provided care and completed [facility] documentation on this patient. I have reviewed the student's documentation and agree with the findings.
[2021-12-13 16:00] VITALS: BP 136/106
[2021-12-13 20:08] VITALS: BP 140/100; PULSE 89; RESP 18; TEMP 36.4; O2SAT 100
[2021-12-14] MEDS: MORPHINE SULFATE (*CRX) 2 MG/ML INJ IV PUSH ×3 (00:44→23:44)
[2021-12-14] MEDS: diazePAM INJ (*CRX) 10 MG/2 ML SYRINGE 5 MG IV PUSH (00:58)
[2021-12-14 04:14] VITALS: BP 120/84; PULSE 97; RESP 18; TEMP 36.4; O2SAT 98
[2021-12-14] MEDS: SODIUM CHLORIDE 0.9% IV 1,000 ML 150 ML IV CONT ×4 (04:18→22:33)
[2021-12-14] MEDS: chlordiazePOXIDE (*CRX) 25 MG CAPSULE PO ×3 (06:16→22:26)
[2021-12-14] MEDS: FOLIC ACID 1 MG TABLET PO (07:24)
[2021-12-14] MEDS: THERAPEUTIC MULTIVITAMINS/MINERALS TAB (*BKC) 1 TABLET PO (07:24)
[2021-12-14] MEDS: PANTOPRAZOLE SODIUM IV 40 MG VIAL IV PUSH ×2 (07:24→22:28)
[2021-12-14] MEDS: THIAMINE HCL 100 MG TABLET PO (07:25)
[2021-12-14 09:01] LABS: Hematocrit 39.7 % (42.0-52.0); Hemoglobin 13.5 g/dL (14.0-18.0); Immature Platelet Fraction Pct 14.7 % (0.9-11.2); Mean Corpuscular Hemoglobin 33.8 pg (26-34); Mean Corpuscular Volume 99.5 fl (80-100); Mean Platelet Volume 11.5 fl (7.4-10.4); Platelet Count Result 122 k/mm3 (150-375); Red Blood Count 3.99 M/mm3 (4.6-6.20); Red Cell Distribution Width 15.1 % (11.5-14.5); White Blood Count 7.6 K/mm3 (4.5-10.0)
[2021-12-14 09:14] LABS: Alanine Aminotransferase 47 U/L (6-50); Albumin Level 3.8 g/dL (3.5-5.1); Alkaline Phosphatase 100 U/L (38-126); Anion Gap 11 mmol/L (8-16); Aspartate Amino Transferase 45 U/L (17-59); Bilirubin,Total 0.7 mg/dL (0.2-1.3); Blood Urea Nitrogen 3 mg/dL (9-20); Calcium 8.3 mg/dL (8.4-10.2); Carbon Dioxide 20 mmol/L (22-30); Chloride 100 mmol/L (98-107); Estimated CRCL calculation 117 ml/min; Estimated Glomerular Filt Rate > 60; Glucose 73 mg/dL (65-110); Potassium 3.6 mmol/L (3.4-5.0); Sodium 131 mmol/L (137-145)
[2021-12-14 09:33] LABS: Lipase 3960 U/L (23-300)
--- NOTE | 2021-12-14 09:52 | P.PNIM_ITS ---
Progress Note: A&P Assessment and Plan (1) Acute pancreatitis with uninfected necrosis: Code(s): K85.91 - Acute pancreatitis with uninfected necrosis, unspecified Status: Acute Assessment and Plan: Most likely related to alcohol consumption. Second episode of pancreatitis this year. CT scan shows diffuse peripancreatic inflammatory stranding and 3.7x3.6 cm loculated fluid likely walled off necrosis. * Continue aggressive hydration. * Pain control with IV Morphine PRN, change to Q2 hours. Add [place] 5/325 mg PO Q4 hours PRN if taking PO. * Zofran 4 mg IV Q4 hours PRN. * Trial clear liquids. * lipase 8983 to 6087 to 3960 * LFTs improved with hydration; within normal limits today. * Leukocytosis improved. * He was counseled in-depth about alcohol abstinence upon admission. (2) Transaminitis: Code(s): R74.01 - Elevation of levels of liver transaminase levels Status: Acute Assessment and Plan: Likely due to a combination of alcohol use and hepatitis steatosis. No cholelithiasis or evidence of cholecystitis on imaging. * hepatitis panel negative. * LFTs within normal limits now. (3) Dehydration: Code(s): E86.0 - Dehydration Status: Acute Assessment and Plan: * Continue aggressive rehydration as above * Good urine output. * Monitor I/O. * Improving. (4) Alcohol abuse: Code(s): F10.10 - Alcohol abuse, uncomplicated Status: Acute Assessment and Plan: Patient drinks approximately 5th of vodka per day. Last drink Monday morning. * Counseled on alcohol cessation. * We discussed complications of alcohol abuse including liver cirrhosis and chronic pancreatitis. His hepatic steatosis and pancreatitis diagnosis were discussed at length. * Continue CIWA protocol Q4 hours with PRN valium IV for CIWA >8. * Continue thiamine, multivitamin and folic acid supplementation. * Continue librium 25 mg Q8 hours. (5) Esophagitis: Code(s): K20.90 - Esophagitis, unspecified without bleeding Status: Acute Assessment and Plan: * Continue IV pantoprazole. (6) Seizures: Code(s): R56.9 - Unspecified convulsions Status: Chronic Assessment and Plan: * Previously treated with Lamictal, which he stopped more than a few months ago due to side effects. * PRN ativan 4 mg IV for seizure activity. * Seizure precautions. Plan Disposition: Home with family Estimated LOS: 2-3 days CODE STATUS: FULL CODE Time Spent With Patient Time with patient: 15 - 25 minutes Subjective Date/time seen: 12/14/21 09:52 He reports continued abdominal pain, however, this is improving. CIWA score 4-13 overnight and he received 1 dose Valium 5 mg IV. He is mildly anxious, mildly tremulous, no disorientation, no vomiting and denies hallucinations. Review of Systems Review of Systems: All systems reviewed & are unremarkable except as noted in HPI and below Exam Narrative: General: Thin, mildly ill-appearing male lying in bed. No distress. HEENT: Normocephalic. Pupils equal and round. Conjunctivae anicteric. Mucous membranes dry. Neck: Supple. No JVD. Respiratory: Respirations regular and unlabored. Lungs are clear to auscultation bilaterally. No retractions. Cardiovascular: Regular rate and rhythm with S1-S2. No murmur, gallop or rub. Gastrointestinal: Abdomen is soft, flat, and non-distended with positive bowel sounds. Mo
--- NOTE | 2021-12-14 09:52 | PM.IMPN ---
Progress Note: A&P Assessment and Plan (1) Acute pancreatitis with uninfected necrosis: Code(s): K85.91 - Acute pancreatitis with uninfected necrosis, unspecified Status: Acute Assessment and Plan: Most likely related to alcohol consumption. Second episode of pancreatitis this year. CT scan shows diffuse peripancreatic inflammatory stranding and 3.7x3.6 cm loculated fluid likely walled off necrosis. Continue aggressive hydration. Pain control with IV Morphine PRN, change to Q2 hours. Add [place] 5/325 mg PO Q4 hours PRN if taking PO. Zofran 4 mg IV Q4 hours PRN. Trial clear liquids. lipase 8983 to 6087 to 3960 LFTs improved with hydration; within normal limits today. Leukocytosis improved. He was counseled in-depth about alcohol abstinence upon admission. (2) Transaminitis: Code(s): R74.01 - Elevation of levels of liver transaminase levels Status: Acute Assessment and Plan: Likely due to a combination of alcohol use and hepatitis steatosis. No cholelithiasis or evidence of cholecystitis on imaging. hepatitis panel negative. LFTs within normal limits now. (3) Dehydration: Code(s): E86.0 - Dehydration Status: Acute Assessment and Plan: Continue aggressive rehydration as above Good urine output. Monitor I/O. Improving. (4) Alcohol abuse: Code(s): F10.10 - Alcohol abuse, uncomplicated Status: Acute Assessment and Plan: Patient drinks approximately 5th of vodka per day. Last drink Monday morning. Counseled on alcohol cessation. We discussed complications of alcohol abuse including liver cirrhosis and chronic pancreatitis. His hepatic steatosis and pancreatitis diagnosis were discussed at length. Continue CIWA protocol Q4 hours with PRN valium IV for CIWA >8. Continue thiamine, multivitamin and folic acid supplementation. Continue librium 25 mg Q8 hours. (5) Esophagitis: Code(s): K20.90 - Esophagitis, unspecified without bleeding Status: Acute Assessment and Plan: Continue IV pantoprazole. (6) Seizures: Code(s): R56.9 - Unspecified convulsions Status: Chronic Assessment and Plan: Previously treated with Lamictal, which he stopped more than a few months ago due to side effects. PRN ativan 4 mg IV for seizure activity. Seizure precautions. Plan Disposition: Home with family Estimated LOS: 2-3 days CODE STATUS: FULL CODE Time Spent With Patient Time with patient: 15 - 25 minutes Subjective Date/time seen: 12/14/21 09:52 He reports continued abdominal pain, however, this is improving. CIWA score 4-13 overnight and he received 1 dose Valium 5 mg IV. He is mildly anxious, mildly tremulous, no disorientation, no vomiting and denies hallucinations. Review of Systems Review of Systems: All systems reviewed & are unremarkable except as noted in HPI and below Exam Narrative: General: Thin, mildly ill-appearing male lying in bed. No distress. HEENT: Normocephalic. Pupils equal and round. Conjunctivae anicteric. Mucous membranes dry. Neck: Supple. No JVD. Respiratory: Respirations regular and unlabored. Lungs are clear to auscultation bilaterally. No retractions. Cardiovascular: Regular rate and rhythm with S1-S2. No murmur, gallop or rub. Gastrointestinal: Abdomen is soft, flat, and non-distended with positive bowel sounds. Moderate tenderness to light palpation epigastric region. Skin: Warm and dry. Generalized pallor. No rashes or lesions. Skin intact. Extremities: No cyanosis, clubbing, or edema. Neurological: Alert and oriented x3. Mild visible tremor bilateral hands. No hallucinations. Cranial nerves 2-12 are grossly intact. No gross focal deficits to casual conversation. Psychiatric: Pleasant and cooperative. Mildly anxious. Speech clear and non-pressured Objective Data Vital Signs Vital Signs: Vital Signs - 24
[2021-12-14] MEDS: HYDROcodone/acetaminophen (*CRX) 5-325 MG TABLET 1 TAB PO ×2 (10:59→15:42)
[2021-12-14 12:00] VITALS: BP 120/84
[2021-12-14 13:52] VITALS: BP 124/89; PULSE 79; RESP 18; TEMP 36.5; O2SAT 100
[2021-12-14 16:00] VITALS: BP 124/89
[2021-12-14 19:53] VITALS: BP 132/94; PULSE 82; RESP 18; TEMP 36.4; O2SAT 100
[2021-12-14 20:00] VITALS: BP 132/94; PULSE 82; RESP 18; O2SAT 100
[2021-12-15] VITALS: BP 132/94
[2021-12-15] MEDS: HYDROcodone/acetaminophen (*CRX) 5-325 MG TABLET 1 TAB PO (01:54)
[2021-12-15 03:58] VITALS: BP 132/94
[2021-12-15 04:50] VITALS: BP 128/92; PULSE 67; RESP 18; TEMP 36.6; O2SAT 100
[2021-12-15 05:42] LABS: Hematocrit 40.4 % (42.0-52.0); Immature Platelet Fraction Pct 14.1 % (0.9-11.2); Mean Corpuscular HGB Conc 34.7 g/dl (32-36); Mean Corpuscular Hemoglobin 33.7 pg (26-34); Mean Corpuscular Volume 97.3 fl (80-100); Mean Platelet Volume 11.6 fl (7.4-10.4); Platelet Count Result 131 k/mm3 (150-375); Red Blood Count 4.15 M/mm3 (4.6-6.20); Red Cell Distribution Width 14.8 % (11.5-14.5); White Blood Count 7.8 K/mm3 (4.5-10.0)
[2021-12-15 05:58] LABS: Anion Gap 8 mmol/L (8-16); Blood Urea Nitrogen 2 mg/dL (9-20); Calcium 8.5 mg/dL (8.4-10.2); Carbon Dioxide 23 mmol/L (22-30); Chloride 102 mmol/L (98-107); Estimated CRCL calculation 117 ml/min; Estimated Glomerular Filt Rate > 60; Glucose 88 mg/dL (65-110); Potassium 3.1 mmol/L (3.4-5.0); Sodium 133 mmol/L (137-145)
[2021-12-15] MEDS: chlordiazePOXIDE (*CRX) 25 MG CAPSULE PO (06:27)
[2021-12-15] MEDS: SODIUM CHLORIDE 0.9% IV 1,000 ML 150 ML IV CONT (06:29)
[2021-12-15 06:54] LABS: Lipase 3548 U/L (23-300)
[2021-12-15] MEDS: THIAMINE HCL 100 MG TABLET PO (09:04)
[2021-12-15] MEDS: THERAPEUTIC MULTIVITAMINS/MINERALS TAB (*BKC) 1 TABLET PO (09:04)
[2021-12-15] MEDS: PANTOPRAZOLE SODIUM IV 40 MG VIAL IV PUSH (09:04)
[2021-12-15] MEDS: FOLIC ACID 1 MG TABLET PO (09:04)
[2021-12-15] MEDS: POTASSIUM CHLORIDE INJ 40 MEQ in SODIUM CHLORIDE 0.9% IV 500 ML 130 MEQ IVPB (09:05)
[2021-12-15 09:17] LABS: Appearance Urine Clear (Clear); Bilirubin Urine Negative (Negative); Blood Urine Negative (Negative); Glucose Urine UA Trace mg/dL (Negative); Ketones Urine 2+ mg/dL (Negative); Leukocyte Esterase Ur Negative LEU/UL (NEGATIVE); Nitrate Urine Negative (Negative); Protein Urine Negative (Negative); Urobilinogen Urine 0.2 mg/dL (<2.0); pH Urine 6.5 (5.0-9.0)
[2021-12-15 09:19] LABS: Add Urine Microscopic? YES; Color Urine Light Yellow (Yellow)
[2021-12-15 09:22] LABS: WBC Urine 0-3 /hpf (0-3)
--- NOTE | 2021-12-15 10:58 | P.DS_ITS ---
DS: Admitting Diagnosis Discharge Date 12/15/2021 Admitting Diagnosis Acute abdominal pain Acute pancreatitis Transaminitis Alcohol abuse Esophagitis DS: Discharge Diagnosis Discharge Diagnosis (1) Acute pancreatitis with uninfected necrosis: Code(s): K85.91 - Acute pancreatitis with uninfected necrosis, unspecified Status: Acute Assessment and Plan: Most likely related to alcohol consumption. Second episode of pancreatitis this year. CT scan shows diffuse peripancreatic inflammatory stranding and 3.7x3.6 cm loculated fluid likely walled off necrosis. * Continue aggressive hydration. * Pain control with IV Morphine PRN, change to Q2 hours. Add [place] 5/325 mg PO Q4 hours PRN if taking PO. * Zofran 4 mg IV Q4 hours PRN. * Trial clear liquids. * lipase 8983 to 6087 to 3960 * LFTs improved with hydration; within normal limits today. * Leukocytosis improved. * He was counseled in-depth about alcohol abstinence upon admission. (2) Transaminitis: Code(s): R74.01 - Elevation of levels of liver transaminase levels Status: Acute Assessment and Plan: Likely due to a combination of alcohol use and hepatitis steatosis. No cholelithiasis or evidence of cholecystitis on imaging. * hepatitis panel negative. * LFTs within normal limits now. (3) Dehydration: Code(s): E86.0 - Dehydration Status: Acute Assessment and Plan: * Continue aggressive rehydration as above * Good urine output. * Monitor I/O. * Improving. (4) Alcohol abuse: Code(s): F10.10 - Alcohol abuse, uncomplicated Status: Acute Assessment and Plan: Patient drinks approximately 5th of vodka per day. Last drink Monday morning. * Counseled on alcohol cessation. * We discussed complications of alcohol abuse including liver cirrhosis and chronic pancreatitis. His hepatic steatosis and pancreatitis diagnosis were discussed at length. * Continue CIWA protocol Q4 hours with PRN valium IV for CIWA >8. * Continue thiamine, multivitamin and folic acid supplementation. * Continue librium 25 mg Q8 hours. (5) Esophagitis: Code(s): K20.90 - Esophagitis, unspecified without bleeding Status: Acute Assessment and Plan: * Continue IV pantoprazole. (6) Seizures: Code(s): R56.9 - Unspecified convulsions Status: Chronic Assessment and Plan: * Previously treated with Lamictal, which he stopped more than a few months ago due to side effects. * PRN ativan 4 mg IV for seizure activity. * Seizure precautions. Plan Disposition: Home with family Estimated LOS: 2-3 days CODE STATUS: FULL CODE DS: Summary Hospital Course Reason for hospitalization: Acute abdominal pain Acute pancreatitis Hospital Course: Patient is a 36-year-old male with past medical history of alcohol abuse, seizure related to alcohol withdrawal, repeat pancreatitis and tobacco dependence. He presented to the emergency department for evaluation of acute abdominal pain. Patient reports he has had left upper quadrant abdominal pain since the prior to admission and he described the pain as 9 in occasional skin itching pain it was constant since the onset. Patient initially thought he was constipated so he took a stool softener at home without much relief. He then attempted to take Tylenol over the counter which did not help either. The patient became nauseated and had several episodes of emesis and presented to the
--- NOTE | 2021-12-15 10:58 | PM.DS ---
DS: Admitting Diagnosis Discharge Date 12/15/2021 Admitting Diagnosis Acute abdominal pain Acute pancreatitis Transaminitis Alcohol abuse Esophagitis DS: Discharge Diagnosis Discharge Diagnosis (1) Acute pancreatitis with uninfected necrosis: Code(s): K85.91 - Acute pancreatitis with uninfected necrosis, unspecified Status: Acute Assessment and Plan: Most likely related to alcohol consumption. Second episode of pancreatitis this year. CT scan shows diffuse peripancreatic inflammatory stranding and 3.7x3.6 cm loculated fluid likely walled off necrosis. Continue aggressive hydration. Pain control with IV Morphine PRN, change to Q2 hours. Add [place] 5/325 mg PO Q4 hours PRN if taking PO. Zofran 4 mg IV Q4 hours PRN. Trial clear liquids. lipase 8983 to 6087 to 3960 LFTs improved with hydration; within normal limits today. Leukocytosis improved. He was counseled in-depth about alcohol abstinence upon admission. (2) Transaminitis: Code(s): R74.01 - Elevation of levels of liver transaminase levels Status: Acute Assessment and Plan: Likely due to a combination of alcohol use and hepatitis steatosis. No cholelithiasis or evidence of cholecystitis on imaging. hepatitis panel negative. LFTs within normal limits now. (3) Dehydration: Code(s): E86.0 - Dehydration Status: Acute Assessment and Plan: Continue aggressive rehydration as above Good urine output. Monitor I/O. Improving. (4) Alcohol abuse: Code(s): F10.10 - Alcohol abuse, uncomplicated Status: Acute Assessment and Plan: Patient drinks approximately 5th of vodka per day. Last drink Monday morning. Counseled on alcohol cessation. We discussed complications of alcohol abuse including liver cirrhosis and chronic pancreatitis. His hepatic steatosis and pancreatitis diagnosis were discussed at length. Continue CIWA protocol Q4 hours with PRN valium IV for CIWA >8. Continue thiamine, multivitamin and folic acid supplementation. Continue librium 25 mg Q8 hours. (5) Esophagitis: Code(s): K20.90 - Esophagitis, unspecified without bleeding Status: Acute Assessment and Plan: Continue IV pantoprazole. (6) Seizures: Code(s): R56.9 - Unspecified convulsions Status: Chronic Assessment and Plan: Previously treated with Lamictal, which he stopped more than a few months ago due to side effects. PRN ativan 4 mg IV for seizure activity. Seizure precautions. Plan Disposition: Home with family Estimated LOS: 2-3 days CODE STATUS: FULL CODE DS: Summary Hospital Course Reason for hospitalization: Acute abdominal pain Acute pancreatitis Hospital Course: Patient is a 36-year-old male with past medical history of alcohol abuse, seizure related to alcohol withdrawal, repeat pancreatitis and tobacco dependence. He presented to the emergency department for evaluation of acute abdominal pain. Patient reports he has had left upper quadrant abdominal pain since the prior to admission and he described the pain as 9 in occasional skin itching pain it was constant since the onset. Patient initially thought he was constipated so he took a stool softener at home without much relief. He then attempted to take Tylenol over the counter which did not help either. The patient became nauseated and had several episodes of emesis and presented to the emergency department due to unrelenting pain and emesis. Patient did report that he had similar episodes in the past at, in September and was hospitalized for acute pancreatitis at that time. Patient did report he was drinking 3 pt of vodka a day and had since cut back his intake. Today the patient reports he drinks 1-2 pt of vodka a day. Patient reports his last drink of alcohol was the day prior to coming to the emergency department he was noted to have some tremors in the em
== END 2021-12-15 13:51 | disposition home or self-care (01) | DRG 282 ==
LOC: ANHED 14:46 → ANH2MED 15:52
PROVIDERS: Nurse Practitioner Family; Physician Assistant; Admitting Provider Chiropractor; Emergency Provider Emergency Medicine; Visit Provider Nurse Practitioner Family
DX: K85.21 Alcohol induced acute pancreatitis with uninfected necrosis (principal); K70.30 Alcoholic cirrhosis of liver without ascites; F10.10 Alcohol abuse, uncomplicated; K76.0 Fatty (change of) liver, not elsewhere classified; G25.2 Other specified forms of tremor; Z20.822 Contact with and (suspected) exposure to COVID-19; E86.0 Dehydration; K20.90 Esophagitis, unspecified without bleeding; F17.210 Nicotine dependence, cigarettes, uncomplicated; F41.9 Anxiety disorder, unspecified; F32.A Depression, unspecified
CPT/HCPCS: 36415; 74177; 80048; 80053; 80074; 81001; 83690; 85025; 85027; 85055; 96361; 96374; 96375; 99285; A9270; C9113; C9803; G0378; J1170; J2060; J2270; J2405; J3360; J3411; J3480; J7030; J7040; Q9967; U0003; U0005

== ENCOUNTER 2024-02-17 10:12 | Emergency (ER) | payer OTHER, SELFPAY ==
[2024-02-17 10:19] VITALS: BP 92/82; PULSE 76; RESP 20; TEMP 36.8; O2SAT 100
--- NOTE | 2024-02-17 11:04 | ED.SEIZURE ---
HPI - Seizure General Chief Complaint: Seizure Stated Complaint: seizure, lac to R eye Time Seen by Provider: 02/17/24 10:32 History of Present Illness HPI Narrative: Patient is a 38-year-old male with history of seizures who presents ER after having a seizure. He was in his living room when he fell down striking his head on the ground. The TV then began to fall but his mother stopped it from falling. Seizure lasted 5 minutes. He has not had a seizure in 1 year. He is not medicated as he did not tolerate taking antiepileptic medications. Denies any drug or alcohol use. No fevers or chills or sweats. He has a laceration lateral to his right eye. His tetanus shot is not up-to-date. Seizure History: Yes Related Data Allergies Allergy/AdvReac Type Severity Reaction Status Date / Time No Known Allergies Allergy Verified 02/17/24 11:27 Review of Systems Review of Systems: All systems reviewed & are unremarkable except as noted in HPI and below Constitutional: Constitutional: Reports no additional constitutional complaints Eyes: Eyes: Reports no additional eye complaints ENT: Reports system reviewed and no additional complaints, except as documented Cardiovascular: Cardiovascular: Reports no additional cardiovascular complaints Respiratory: Respiratory: Reports no additional respiratory complaints Musculoskeletal: Musculoskeletal: Reports myalgias, Denies arthralgias and Denies joint swelling [facility] Past Medical History Medical History Alcohol abuse Anxiety Depression Insomnia Pancreatitis Seizure Tobacco use Surgical History Surgical History No history of previous surgery Family History Family History Father Acute myocardial infarction Hypertension Mother Kidney disease Social History Social History (Updated 12/12/21 @ 21:02 by Gisela Adler PA-C) Social History: Surrogate medical decision maker: Dionne Cardoso, mother. Code status: Full code. Smoking packs per day: 0.5 Smoking cigarettes per day: 10.0 Years smoked: 15 Smoking pack-years: 7.50 Smoking status: Current every day smoker Tobacco type: cigarettes Second hand tobacco smoke exposure: Yes Alcohol intake: current Alcohol use details: 1 to 3 pints of vodka a day. Substance use: former Substance use type: does not use and marijuana Last use: 2019 Living arrangements: with family Additional living arrangements comments: Lives with mother and grandmother. Additional occupation/education comments: Unemployed. Spiritual care concerns: No Agree to blood products: No Exam Narrative: GENERAL: Well-appearing, well-nourished, and in no acute distress. HEAD: Normocephalic, laceration lateral to the right eye and near the supraorbital ridge that is 2 cm in length. It involves a slight portion of the lateral aspect of the upper lid. Does not involve the lateral canthus. ENT: Mucous membranes moist. NECK: Supple. CHEST: Clear to auscultation. No respiratory distress. HEART: Regular rate and rhythm. Normal peripheral pulses. ABDOMEN: Soft, nontender, nondistended. EXTREMITIES: Normal range of motion. No edema. SKIN: Warm, dry, no rash. NEURO: Alert and oriented x3. PSYCH: Normal mood and affect. Course Course Emergency Course: Patient resting comfortably. He would like to start antiepileptics. We will start him on Keppra. He would like to follow-up with his PCP but we also give neurology phone number. Wound repaired well. Discharged Vital Signs Vital signs: Vital Signs Temperature 98.3 F 02/17/24 10:19 Pulse Rate 76 02/17/24 10:19 Respiratory Rate 20 02/17/24 10:19 Blood Pressure 92/82 L 02/17/24 10:19 Pulse Oximetry 100 02/17/24 10:19 Oxygen Delivery Room Air 02/17/24 10:19 Temperature 97.1 F L 02/17/24 13:37 Pulse Rate 60
[2024-02-17] MEDS: SODIUM CHLORIDE 0.9% IV 1,000 ML 999 ML IV CONT (11:28)
[2024-02-17] MEDS: KETOROLAC 30 MG/ML VIAL (*BKC) IV PUSH (11:28)
[2024-02-17] MEDS: TETANUS,DIPHTHERIA,AC PERTUSSIS ADULT (0.5 ML) BOOSTRIX IM (11:29)
[2024-02-17 11:47] VITALS: BP 115/83; PULSE 63; RESP 21; O2SAT 100
[2024-02-17 13:37] VITALS: BP 109/72; PULSE 60; RESP 21; TEMP 36.2; O2SAT 100
== END 2024-02-17 13:41 | disposition home or self-care (01) ==
PROVIDERS: Emergency Provider Emergency Medicine
DX: S01.111A Laceration without foreign body of right eyelid and periocular area, initial encounter (principal); R56.9 Unspecified convulsions; H11.31 Conjunctival hemorrhage, right eye; W19.XXXA Unspecified fall, initial encounter; F41.8 Other specified anxiety disorders; F17.210 Nicotine dependence, cigarettes, uncomplicated; Z23 Encounter for immunization; F10.10 Alcohol abuse, uncomplicated
CPT/HCPCS: 12001; 90471; 90715; 96361; 96374; 99284; J1885; J7030

== ENCOUNTER 2024-08-07 08:33 | Emergency (ER) | payer OTHER, SELFPAY ==
[2024-08-07 08:34] VITALS: BP 129/85; PULSE 92; RESP 16; TEMP 37.2; O2SAT 100
--- OUTSIDE RECORDS SUMMARY | 2024-08-07 08:53 | XMS_ITS | Clinical Summary ---
Author Organization [facility] Address [address] [place] [id number] Care Team Providers Care Lard Tub Washer Name Role Phone Unavailable Primary Care Provider Unavailabl e Social History Tobacco Use Types Packs/Day Years Used Date Smoking Tobacco: Never Assessed Sex and Gender Information Value Date Recorded Sex Assigned at Not on file Legal Sex Male 5:32 PM CDT Gender Identity Not on file Sexual Orientation Not on file Plan of Treatment Health Maintenance Due Date Last Done Comments Annual Physical 11/05/1990 Hepatitis C 11/05/2005 DTaP, Tdap and Td Vaccines ( 1 - Tdap) 11/05/2006 Hepatitis B Vaccines (1 of 3 - 19+ 3-dose series) 11/05/2006 COVID-19 Vaccine (2023-2 5 season) 2024 Influenza Adult (#1) 2024 HPV Vaccines Aged Out No longer eligi ble based on patient's age to complete this topic Meningococcal B Vaccine Aged Out No l onger eligible based on patient's age to complete this topic Meningococcal Vaccine Aged Out No jordan hahn eligible based on patient's age to complete this topic Pneumococcal Vaccine: Pediat rics (0 to 5 Years) and At-Risk Patients (6 to 64 Years) Aged Out No longer eligible b ased on patient's age to complete this topic RSV Immunizations Under 20 Months Aged Out No longer eligible based on patient's age to complete this topic
--- NOTE | 2024-08-07 09:45 | ED_ITS ---
HPI - General Adult General Chief complaint: Dental/Oral Stated complaint: tooth problems Time Seen by Provider: 08/07/24 09:37 History of Present Illness HPI narrative: 38-year-old male with history of poor dentition presenting to the emergency department for evaluation for worsening right 1st molar pain. Patient does have follow-up scheduled to have a complete dental extraction in approximately 2 months but states he is having worsening dental pain. Patient was trying Tylenol and topical analgesics with no significant improvement. Related Data Allergies Allergy/AdvReac Type Severity Reaction Status Date / Time No Known Allergies Allergy Verified 08/07/24 10:07 Review of Systems Review of Systems: All systems reviewed & are unremarkable except as noted in HPI and below PMFSH Past Medical History Medical History Alcohol abuse Anxiety Depression Insomnia Pancreatitis Seizure Tobacco use Surgical History Surgical History No history of previous surgery Family History Family History Father Acute myocardial infarction Hypertension Mother Kidney disease Social History Social History (Updated 12/12/21 @ 21:02 by Gisela Adler PA-C) Social History: Surrogate medical decision maker: Dionne Cardoso, mother. Code status: Full code. Smoking packs per day: 0.5 Smoking cigarettes per day: 10.0 Years smoked: 15 Smoking pack-years: 7.50 Smoking status: Current every day smoker Tobacco type: cigarettes Second hand tobacco smoke exposure: Yes Alcohol intake: current Alcohol use details: 1 to 3 pints of vodka a day. Substance use: former Substance use type: does not use and marijuana Last use: 2019 Living arrangements: with family Additional living arrangements comments: Lives with mother and grandmother. Additional occupation/education comments: Unemployed. Spiritual care concerns: No Agree to blood products: No Exam Narrative: APPEARANCE: Well appearing, no pain, no distress, well-nourished. HEAD: normocephalic, atraumatic. EYES: PERRLA/EOMI, conjunctivae clear. NOSE: Normal no drainage EARS:TMS clear with good light reflex. THROAT: Pharynx clear, no exudate. Mouth: Multiple dental caries with no evidence of abscess, no trismus NECK: Supple. No adenopathy, no masses. RESPIRATORY: Airway patent, respirations nonlabored. Clear to auscultation bilaterally, no rales, rhonchi, wheezing. CARDIOVASCULAR: Regular rate and rhythm without murmurs rubs or gallops. ABDOMINAL: Soft, nontender, nondistended, normal bowel sounds MUSCULOSKELETAL: Moves all extremities. Strength/ROM intact, No edema, No calf tenderness. NEURO: Alert. Cranial nerves II through XII intact. Good gait. Good coordination SKIN: Warm, dry. Normal Color Course Vital Signs Vital signs: Vital Signs Temperature 98.9 F 08/07/24 08:34 Pulse Rate 92 08/07/24 08:34 Respiratory Rate 16 08/07/24 08:34 Blood Pressure 129/85 08/07/24 08:34 Pulse Oximetry 100 08/07/24 08:34 Temperature 98.9 F 08/07/24 08:34 Pulse Rate 85 08/07/24 10:09 Respiratory Rate 16 08/07/24 10:09 Blood Pressure 111/76 08/07/24 10:09 Pulse Oximetry 100 08/07/24 10:09 Medical Decision Making [facility] Narrative Medical decision making narrative: 38-year-old male presents emergency department for evaluation for worsening dental pain associated with chronic dental decay. Patient was advised to take ibuprofen for pain control and patient will be started on Augmentin. Patient does have follow-up scheduled. Patient was encouraged to maintain his follow-up and patient was educated on reasons to return to the emergency department. All questions and concerns were addressed. Differential Diagnosis Differential Diagnosis: Dental infection, trismus, abscess Vital Signs Vital Signs: Vital Signs Temperature 98.9 F 08/07/24 08:34 Pulse Rate 92 08/07/24 08:34 Respiratory Rate 16 08/07/24 08:34 Blood Pressure 129/85 08/07/24 08:34 Pulse Oximetry 100 08/07/24 08:34 Temperature 98.9 F 08/07/24 08:34 Pulse Rate 85 08/07/24 10:09 Respiratory Rate 16 08/07/24 10:09 Blood Pressure 111/76 08/07/24 10:09 Pulse Oximetry 100 08/07/24 10:09 Discharge Plan Discharge Clinical Impression: Pain due to dental caries Patient Disposition: Home, Self-Care Condition: Stable Instructions: Antibiotic Form, Toothache (ED) Additional Instructions: Ibuprofen for pain control. Antibiotic as directed. [place] as needed for additional pain control. Have close follow-up with your primary care physician and your dentist. Patient Language: Icelandic Prescriptions: New hydrocodone-acetaminophen 5-325 mg tablet 1 tablet PO Q12H PRN (Reason: pain) Qty: 10 0RF amoxicillin-pot clavulanate 875-125 mg tablet 1 tablet PO Q12H 7 Days Qty: 14 0RF No Action levetiracetam [Keppra] 500 mg tablet 500 mg PO BID Qty: 30 0RF Follow-up/Referrals: UNKNOWN,DOCTOR [Primary Care Provider] -
[2024-08-07] MEDS: IBUPROFEN 600 MG TABLET PO (10:05)
[2024-08-07] MEDS: AMOXICILLIN/CLAVULANATE K 875-125 MG TAB 1 TABLET PO (10:05)
[2024-08-07 10:09] VITALS: BP 111/76; PULSE 85; RESP 16; O2SAT 100
--- OUTSIDE RECORDS SUMMARY | 2024-08-07 10:30 | XMS_ITS | Clinical Summary ---
Author Organization [facility] Address [address] [place] [id number] Care Team Providers Care Student Services Rep Name Role Phone Unavailable Primary Care Provider [...] topic Meningococcal Vaccine Aged Out No jordan hanh eligible based on patient's age to complete this topic Pneumococcal Vaccine: Pediat rics (0 to 5 Years) and At-Risk Patients (6 to 64 Years) Aged Out No longer eligible b ased on patient's age to complete this topic RSV Immunizations Under 20 Months Aged Out No longer eligible based on patient's age to complete this topic
== END 2024-08-07 10:25 | disposition home or self-care (01) ==
PROVIDERS: Emergency Provider Emergency Medicine
DX: K02.9 Dental caries, unspecified (principal); F41.9 Anxiety disorder, unspecified; F32.A Depression, unspecified; F17.210 Nicotine dependence, cigarettes, uncomplicated
CPT/HCPCS: 99283; A9270

== ENCOUNTER 2024-09-26 22:08 | Emergency (ER) | payer OTHER, SELFPAY ==
--- OUTSIDE RECORDS SUMMARY | 2024-09-26 22:09 | XMS_ITS | Clinical Summary ---
Author Organization [facility] Address [address] [place] [id number] Care Team Providers Care National Account Representative Name Role Phone Unavailable Primary Care Provider [...] 11/05/2006 COVID-19 Vaccine (2023-2 5 season) 2024 HPV Vaccines Aged Out No longer eligi ble based on patient's age to complete this topic Meningococcal B Vaccine Aged Out No l onger eligible based on patient's age to complete this topic Meningococcal Vaccine Aged Out No jordan hanh eligible based on patient's age to complete this topic Pneumococcal Vaccine: Pediat rics (0 to 5 Years) and At-Risk Patients (6 to 49 Years) Aged Out No longer eligible b ased on patient's age to complete this topic RSV Immunizations Under 20 Months Aged Out No longer eligible based on patient's age to complete this topic
[2024-09-26 22:15] VITALS: BP 114/76; PULSE 97; RESP 15; TEMP 36.3; O2SAT 99
--- NOTE | 2024-09-26 22:30 | ED_ITS ---
HPI - Dental/Oral General Chief complaint: Dental/Oral Stated complaint: Tooth pain Time Seen by Provider: 09/26/24 22:16 History of Present Illness HPI Narrative: 38-year-old male presents to emergency department for abdominal pain for the past 5 days. Patient states he has poor dentition. His right lower teeth are bothering him. He has an appointment with a dentist in a couple weeks to get his teeth pulled. He denies otalgia, sore throat, difficulty breathing or swallowing, fever. Related Data Allergies Allergy/AdvReac Type Severity Reaction Status Date / Time No Known Allergies Allergy Verified 09/26/24 22:08 Review of Systems Review of Systems: All systems reviewed & are unremarkable except as noted in HPI and below PMFSH Past Medical History Medical History Alcohol abuse Tobacco use Seizure Pancreatitis Insomnia Anxiety Depression Surgical History Surgical History No history of previous surgery Family History Family History Father Acute myocardial infarction Hypertension Mother Kidney disease Social History Social History Social History: Surrogate medical decision maker: Dionne Cardoso, mother. Code status: Full code. Smoking packs per day: 0.5 Smoking cigarettes per day: 10.0 Years smoked: 15 Smoking pack-years: 7.50 Smoking status: Current every day smoker Tobacco type: cigarettes Second hand tobacco smoke exposure: Yes Alcohol intake: current Alcohol use details: 1 to 3 pints of vodka a day. Substance use: former Substance use type: does not use and marijuana Last use: 2019 Living arrangements: with family Additional living arrangements comments: Lives with mother and grandmother. Additional occupation/education comments: Unemployed. Spiritual care concerns: No Agree to blood products: No Exam Narrative: GENERAL: Well-appearing, well-nourished, and in no acute distress. HEAD: Normocephalic, atraumatic. EYES: EOMI. ENT: Nares clear, no rhinorrhea or epistaxis. Mucous membranes moist. Significant dental caries throughout, tenderness to the gum line of tooth #28. No evidence of periapical abscess or deep space infection. Floor of mouth is soft without crepitus. No submandibular edema. No trismus. No dysphagia or drooling. Patient tolerating secretions NECK: Supple. CHEST: Clear to auscultation. No respiratory distress. HEART: Regular rate and rhythm. No murmur heard. Normal peripheral pulses. EXTREMITIES: Normal range of motion. No edema. SKIN: Warm, dry, no rash. NEURO: No focal deficits. Alert and oriented x3 Course Vital Signs Vital signs: Vital Signs Temperature 97.3 F L 09/26/24 22:15 Pulse Rate 97 09/26/24 22:15 Respiratory Rate 15 09/26/24 22:15 Blood Pressure 114/76 09/26/24 22:15 Pulse Oximetry 99 09/26/24 22:15 Oxygen Delivery Room Air 09/26/24 22:15 Temperature 97.3 F L 09/26/24 22:15 Pulse Rate 97 09/26/24 22:15 Respiratory Rate 15 09/26/24 22:15 Blood Pressure 114/76 09/26/24 22:15 Pulse Oximetry 99 09/26/24 22:15 Oxygen Delivery Room Air 09/26/24 22:15 MDM - Dental/Oral MDM Narrative Medical decision making narrative: 38-year-old male presents emergency department for right lower dental pain for the past 5 days. Patient has known caries and is scheduled to have them pulled in a couple weeks by his dentist. Triage vitals are stable. He is afebrile and nontoxic appearing. Exam is significant for the above. No evidence of deep space infection. No trismus. He is tolerating secretions. No airway compromise. Discharge Plan Discharge Clinical Impression: Dental caries Patient Disposition: Home Condition: Stable Instructions: Antibiotic Form, Toothache (ED) Additional Instructions: Take antibiotics as directed. Take ibuprofen as needed for pain and [place] for breakthrough pain. Follow-up closely with your dentist. Return emergency department if you develop a fever of 100.4 or greater, you develop difficulty breathing or swallowing, or other concerning symptoms. Patient Language: Mosotho Prescriptions: New hydrocodone-acetaminophen 5-325 mg tablet 1 tablet PO Q8H PRN (Reason: pain) Qty: 14 0RF naproxen 500 mg tablet 500 mg PO BID PRN (Reason: pain) Qty: 20 0RF amoxicillin-pot clavulanate 875-125 mg tablet 1 tablet PO Q12H Qty: 14 0RF No Action hydrocodone-acetaminophen 5-325 mg tablet 1 tablet PO Q12H PRN (Reason: pain) Qty: 10 0RF amoxicillin-pot clavulanate 875-125 mg tablet 1 tablet PO Q12H 7 Days Qty: 14 0RF levetiracetam [Keppra] 500 mg tablet 500 mg PO BID Qty: 30 0RF Follow-up/Referrals: UNKNOWN,DOCTOR [Primary Care Provider] - Stand Alone Forms: Work/School Release IP
--- OUTSIDE RECORDS SUMMARY | 2024-09-26 22:37 | XMS_ITS | Clinical Summary ---
Author Organization [facility] Address [address] [place] [id number] Care Team Providers Care Physician Practice Manager Name Role Phone Unavailable Primary Care Provider [...]
[2024-09-26] MEDS: AMOXICILLIN/CLAVULANATE K 875-125 MG TAB 1 TABLET PO (22:45)
[2024-09-26] MEDS: HYDROcodone/acetaminophen (*CRX) 5-325 MG TABLET 1 TAB PO (22:45)
[2024-09-26 22:53] VITALS: BP 110/72; PULSE 88; RESP 17; TEMP 36.6; O2SAT 100
== END 2024-09-26 22:55 | disposition home or self-care (01) ==
LOC: ANHED 22:35
PROVIDERS: Emergency Provider Physician Assistant
DX: K02.9 Dental caries, unspecified (principal); R10.9 Unspecified abdominal pain; F41.8 Other specified anxiety disorders; F17.210 Nicotine dependence, cigarettes, uncomplicated
CPT/HCPCS: 99283; A9270

== ENCOUNTER 2025-04-06 13:38 | Emergency (ER) | payer OTHER, SELFPAY ==
--- OUTSIDE RECORDS SUMMARY | 2025-04-06 13:40 | XMS_ITS | Clinical Summary ---
Author Organization [facility] Address [address] [place] [id number] Care Team Providers Care Universal Worker [facility]isted Living Name Role Phone Unavailable Primary Care Provider [...] of 3 - 19+ 3-dose series) 11/05/2006 HPV Vaccines (1 - 3-dose SCD M series) 11/05/2014 COVID-19 Vaccine (2024-2 6 season) 2025 Influenza Adult (#1) 2025 Hepatitis A Vaccines Aged Out No long er eligible based on patient's age to complete [...]
[2025-04-06 13:48] VITALS: BP 154/99; PULSE 94; RESP 20; TEMP 36.9; O2SAT 100
--- OUTSIDE RECORDS SUMMARY | 2025-04-06 15:47 | XMS_ITS | Clinical Summary ---
Author Organization [facility] Address [address] [place] [id number] Care Team Providers Care Construction Lineman Name Role Phone Unavailable Primary Care Provider [...]
--- NOTE | 2025-04-06 15:56 | ED.DENTAL ---
HPI - Dental/Oral General Chief complaint: Dental/Oral Stated complaint: jaw pain and swelling Time Seen by Provider: 04/06/25 15:31 History of Present Illness HPI Narrative: Patient is a 39-year-old male who presents to the ER with dental pain. He reports he has a history of bad teeth with a plan for dentures in his future. Patient reports he grinds his teeth at night and has several ?broken teeth.He started experiencing acute pain yesterday. Patient endorses pain it to tooth number 26, 27, 28, 29 and has had molar 30, 31, and 32 removed in the past. He endorses a history of nonepileptic seizures and dental caries. Patient denies any mastoid tenderness, neck stiffness, difficulty swallowing, or recent fevers. Related Data Allergies Allergy/AdvReac Type Severity Reaction Status Date / Time No Known Allergies Allergy Verified 04/06/25 13:50 Review of Systems Review of Systems: All systems reviewed & are unremarkable except as noted in HPI and below PMFSH Past Medical History Medical History Alcohol abuse Tobacco use Seizure Pancreatitis Insomnia Anxiety Depression Surgical History Surgical History No history of previous surgery Family History Family History Father Acute myocardial infarction Hypertension Mother Kidney disease Social History Social History Social History: Surrogate medical decision maker: Dionne Cardoso, mother. Code status: Full code. Smoking packs per day: 0.5 Smoking cigarettes per day: 10.0 Years smoked: 15 Smoking pack-years: 7.50 Smoking status: Current every day smoker Tobacco type: cigarettes Second hand tobacco smoke exposure: Yes Alcohol intake: current Alcohol use details: 1 to 3 pints of vodka a day. Substance use: former Substance use type: does not use and marijuana Last use: 2019 Living arrangements: with family Additional living arrangements comments: Lives with mother and grandmother. Additional occupation/education comments: Unemployed. Spiritual care concerns: No Agree to blood products: No Exam Narrative: GENERAL: Well appearing, well-nourished, non-toxic, in no acute distress. HEAD: Normocephalic, atraumatic. + dental decay, dental cavities, palpable abscess to right lower jaw NECK: Supple. No adenopathy, no masses. RESPIRATORY: Airway patent, respirations nonlabored. Clear to auscultation bilaterally, no rales, rhonchi, wheezing. CARDIOVASCULAR: Regular rate and rhythm without murmurs, rubs, or gallops. Peripheral pulses 2+ and equal bilaterally. ABDOMINAL: Soft, nontender, nondistended, no hepatosplenomegaly. Normoactive BS. MUSCULOSKELETAL: Moves all extremities. Strength/ROM intact without gross deformities. SKIN: Warm, dry, normal color. No rashes. NEURO: A&O X3. Speech clear. Cranial nerves II-XII intact. No ataxic movements. PSYCHIATRIC: Appropriate mood and affect. Normal interaction. Course Vital Signs Vital signs: Vital Signs Temperature 36.9 C 04/06/25 13:48 Pulse Rate 94 04/06/25 13:48 Respiratory Rate 20 04/06/25 13:48 Blood Pressure 154/99 H 04/06/25 13:48 Pulse Oximetry 100 04/06/25 13:48 Oxygen Delivery Room Air 04/06/25 13:48 Temperature 36.9 C 04/06/25 13:48 Pulse Rate 94 04/06/25 13:48 Respiratory Rate 20 04/06/25 13:48 Blood Pressure 154/99 H 04/06/25 13:48 Pulse Oximetry 100 04/06/25 13:48 Oxygen Delivery Room Air 04/06/25 13:48 MDM - Dental/Oral MDM Narrative Medical decision making narrative: Patient is a 39-year-old male who presents to the ER with dental pain. He reports he has a history of bad teeth with a plan for dentures in his future. Patient reports he grinds his teeth at night and has several ?broken teeth.He started experiencing acute pain yesterday. Patient endorses pain it to tooth number 26, 27, 28, 29 and has had molar 30, 31, and 32 removed in the past. He endorses a history of nonepileptic seizures and dental caries. Patient denies any mastoid tenderness, neck stiffness, difficulty swallowing, or recent fevers. Patient Education/Shared MDM: Patient has not taken antibiotics in over 6 months so he will be started on Augmentin. He will be given his 1st dose here in the ER, along with Toradol and viscous lidocaine for pain relief. Patient strongly advised to maintain hydration status upon discharge and follow-up with a dentist as soon as possible. He will be discharged home with a prescription for Augmentin and viscous lidocaine. Patient advised to take ibuprofen 800 mg as needed for pain control. Strict return precautions provided. Patient verbalized understanding and is in agreement with plan. Vital signs stable at time of discharge. All questions answered. Differential Diagnosis Differential diagnosis: Likely dental caries, toothache, dental abscess and fracture of tooth Discharge Plan Discharge Clinical Impression: Dental caries, Dental abscess, Fracture of tooth Patient Disposition: Home Condition: Stable Instructions: Antibiotic Form, Dental Abscess (ED) Additional Instructions: Please return to the ER with any worsening symptoms. Follow-up with a dentist as soon as possible. Please complete your full dose of antibiotics. You may use viscous lidocaine and take ibuprofen 800 mg p.o. for pain control. Patient Language: O[place]i Prescriptions: New amoxicillin-pot clavulanate 875-125 mg tablet 1 tablet PO Q12H Qty: 20 0RF lidocaine HCl [Lidocaine Viscous] 2 % solution 1 applic mucous membrane QID PRN (Reason: pain) Qty: 300 0RF ibuprofen 800 mg tablet 800 mg PO TID PRN (Reason: pain) Qty: 30 0RF No Action hydrocodone-acetaminophen 5-325 mg tablet 1 tablet PO Q12H PRN (Reason: pain) Qty: 10 0RF amoxicillin-pot clavulanate 875-125 mg tablet 1 tablet PO Q12H 7 Days Qty: 14 0RF levetiracetam [Keppra] 500 mg tablet 500 mg PO BID Qty: 30 0RF hydrocodone-acetaminophen 5-325 mg tablet 1 tablet PO Q8H PRN (Reason: pain) Qty: 14 0RF naproxen 500 mg tablet 500 mg PO BID PRN (Reason: pain) Qty: 20 0RF amoxicillin-pot clavulanate 875-125 mg tablet 1 tablet PO Q12H Qty: 14 0RF Follow-up/Referrals: PHYSICIAN,ADULT LIVE IN CAREGIVER [Primary Care Provider, Internal Medicine] Stand Alone Forms: Work/School Release IP Time of Disposition: 16:02
[2025-04-06] MEDS: KETOROLAC (*BKC) 60 MG/2 ML VIAL IM (16:03)
[2025-04-06] MEDS: LIDOCAINE 2% VISC SOLN 15 ML UDC PO (16:04)
== END 2025-04-06 16:10 | disposition home or self-care (01) ==
PROVIDERS: Emergency Provider Registered Nurse
DX: K04.7 Periapical abscess without sinus (principal); K02.9 Dental caries, unspecified; K03.81 Cracked tooth; R56.9 Unspecified convulsions; F17.210 Nicotine dependence, cigarettes, uncomplicated; Z79.899 Other long term (current) drug therapy
CPT/HCPCS: 96372; 99283; A9270; J1885